=== PATIENT | female | born 1965 | race Two or more races ===

== ENCOUNTER 2016-10-24 14:13 | Emergency (ER) | payer OTHER ==
[2016-10-24 14:33] VITALS: BP 141/86; PULSE 89; TEMP 97.9; BMI 32.9
--- NOTE | 2016-10-24 15:44 | PDOC ---
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 States since that time has had a moist productive cough of yellow phlegm, fevers and chills, head congestion and headache pain. The counter medications with minimal result. Patient smokes less than a pack of cigarettes daily Timing/Duration: reports: changing over time, getting worse Severity: reports: mild, moderate Associated Symptoms: reports: denies symptoms, chest pain/soreness, fever/chills , headache, muscle aches, nasal congestion, nasal drainage Beta Wanda Taken at Home(Core Measure): No Past History - Travel Traveled outside of the country in the last 30 days: No Close contact w/someone who was outside of country & ill: No - Past Medical History Allergies/Adverse Reactions: Allergies Allergy/AdvReac Type Severity Reaction Status Date / Time banana [Banana] Allergy Intermediate Hives Verified 10/24/16 14:29 No Known Drug Allergies Allergy Verified 05/24/16 16:10 raspberry AdvReac Severe Hives Verified 10/24/16 14:29 mushroom AdvReac Intermediate Hives Uncoded 10/24/16 14:29 Home Medications: Ambulatory Orders Aspirin [ASA -] 81 mg PO DAILY 10/25/15 Enalapril Maleate [Vasotec -] 10 mg PO DAILY 10/25/15 Cyclobenzaprine HCl [Flexeril -] 10 mg PO TID PRN #15 tablet 05/24/16 Prednisone [Deltasone -] 20 mg PO BID #8 tablet 05/24/16 Azithromycin [Zithromax -] 250 mg PO UTDICT #6 tab 10/24/16 Asthma: Yes GI Disorders: Yes (GERD) HTN: Yes Psychiatric Problems: Yes (ANXIETY) Suicide Attempt (Hx): No - Surgical History Abdominal Surgery: Yes - Psycho/Social/Smoking Cessation Hx Anxiety: No Suicidal Ideation: No Smoking Status: Yes Smoking History: Current every day smoker Have you smoked in the past 12 months: Yes Number of Cigarettes Smoked Daily: 10 Information on smoking cessation initiated: Yes 'Breaking Loose' booklet given: 02/17/15 Hx Alcohol Use: No Drug/Substance Use Hx: No Substance Use Type: None Respiratory Specific PMHX - Complaint Specific PMHX Bronchitis: Yes Review of Systems - Review of Systems Able to Perform ROS?: Yes Is the patient limited Croatian proficient: Yes Constitutional: Yes: Symptoms Reported, See HPI, Chills, Fever, Malaise, Weakness HEENTM: Yes: Symptoms Reported, See HPI, Nose Congestion, Throat Pain Respiratory: Yes: Symptoms reported, See HPI, Cough. No: Wheezing Cardiac (ROS): No: Symptoms Reported : No: Symptoms Reported Musculoskeletal: Yes: Symptoms Reported, See HPI, Muscle Pain, Joint Stiffness Neurological: Yes: Symptoms reported ( ) All Other Systems: Reviewed and Negative *Physical Exam - Vital Signs Last Vital Signs Temp Pulse Resp BP Pulse Ox 97.9 F 89 20 141/86 98 10/24/16 14:29 10/24/16 14:29 10/24/16 14:29 10/24/16 14:10/24/16 14:29 - Physical Exam General Appearance: Yes: Nourished, Appropriately Dressed. No: Apparent Distress HEENT: positive: ANASTASIA, Normal ENT Inspection, TMs Normal ( congested but landmarks easily visualized), Pharynx Normal (some posterior sinus drainage noted) Neck: positive: Supple. 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 *DC/Admit/Observation/Transfer Diagnosis at time of Disposition: Bronchitis - Discharge Dispostion Disposition: HOME Condition at time of disposition: Stable Admit: No - Patient Instructions Printed Discharge Instructions: DI for Viral Upper Respiratory Infection -- Adult Additional Instructions: Rest, drink lots of fluids: Teas, water, soups, Pedialyte Saltwater gargles Steamy showers/seem to face break up mucus Avoid contact with others until fevers and cough resolved Lots of handwashing and good hygiene Continue [id number] medications for symptomatic relief Tylenol or Motrin for fever and pain Start Zithromax if fevers worsened to 101.5 or above, cough produces thick yellow or green phlegm, symptoms worsen Followup with private physician in one to 2 days as needed Return to emergency department for worsened symptoms, fevers, dehydration
== END 2016-10-24 15:51 | disposition home or self-care (01) ==
LOC: JERFT 14:13
DX: J40 Bronchitis, not specified as acute or chronic (principal); I10 Essential (primary) hypertension; K21.9 Gastro-esophageal reflux disease without esophagitis; J45.909 Unspecified asthma, uncomplicated
CPT/HCPCS: 99281-25

== ENCOUNTER 2016-10-26 14:02 | Emergency (ER) | payer OTHER ==
[2016-10-26 14:07] VITALS: BP 155/89; PULSE 91; TEMP 98.1; BMI 32.9
[2016-10-26] MEDS ORDERED: KETOROLAC TROMETHAMINE 60 MG/2 ML VIAL IM ONE (14:49)
[2016-10-26] MEDS ORDERED: KETOROLAC TROMETHAMINE 60 MG/2 ML VIAL ONE (14:51)
--- NOTE | 2016-10-26 15:07 | PDOC ---
History of Present Illness - General Chief Complaint: Injury Stated Complaint: BACK PAIN Time Seen by Provider: 10/26/16 14:18 History Source: Patient - History of Present Illness Occurred: reports: yesterday Severity: reports: moderate Pain Location: reports: back Method of Injury: Yes: fall Past History - Past Medical History Allergies/Adverse Reactions: Allergies Allergy/AdvReac Type Severity Reaction Status Date / Time banana [Banana] Allergy Intermediate Hives Verified 10/26/16 14:04 No Known Drug Allergies Allergy Verified 10/26/16 14:04 raspberry AdvReac Severe Hives Verified 10/26/16 14:04 mushroom AdvReac Intermediate Hives Uncoded 10/26/16 14:04 Home Medications: Ambulatory Orders NK [No Known Home Medication] 10/26/16 Asthma: Yes GI Disorders: Yes (GERD) HTN: Yes Psychiatric Problems: Yes (ANXIETY) Suicide Attempt (Hx): No - Surgical History Abdominal Surgery: Yes - Psycho/Social/Smoking Cessation Hx Anxiety: Yes Suicidal Ideation: No Smoking Status: Yes Smoking History: Current every day smoker Have you smoked in the past 12 months: Yes Number of Cigarettes Smoked Daily: 20 Information on smoking cessation initiated: No 'Breaking Loose' booklet given: 02/17/15 Hx Alcohol Use: No Drug/Substance Use Hx: No Substance Use Type: None Review of Systems - Review of Systems Respiratory: Yes: Shortness of Breath Cardiac (ROS): No: Chest Pain Musculoskeletal: Yes: Back Pain *Physical Exam - Vital Signs Last Vital Signs Temp Pulse Resp BP Pulse Ox 98.1 F 91 H 18 155/89 98 10/26/16 14:03 10/26/16 14:03 10/26/16 14:03 10/26/16 14:03 10/26/16 14:03 - Physical Exam General Appearance: Yes: Appropriately Dressed, Mild Distress HEENT: positive: Normal Voice Neck: positive: Supple. negative: Tender Musculoskeletal: positive: Normal Inspection, Other (ttp to upper back diffusely ) Extremity: positive: Normal Inspection Integumentary: positive: Dry, Warm Neurologic: positive: Fully Oriented, Alert, Normal Mood/Affect ED Treatment Course - RADIOLOGY Radiology Studies Ordered: Category Date Time Status RIBS BILATERAL [RAD] Stat Radiology 10/26/16 14:50 Ordered - Medications Given in the ED: ED Medications Discontinued Medications Generic Name Dose Route Start Last Admin Trade Name Freq PRN Reason Stop Dose Admin Ketorolac Tromethamine 60 mg 10/26/16 14:49 10/26/16 14:56 Toradol Injection - IM 10/26/16 14:50 60 mg ONCE ONE Administration Medical Decision Making - Medical Decision Making 10/26/16 15:04 51 yo F, h/o chronicn LBP, here w/ upper back pain after she fell onto a piece of wood last night. States pain worse w/ deep inspiration and w/ touch. Took tylenol w/ no relief. Denies any other injuries. See exam Back injury M/l sprain XR r/o rib fx -pain control in ED 10/26/16 15:07 10/26/16 15:20 XR neg for acute pathology. Pt discharge w/ otc pain control *DC/Admit/Observation/Transfer Diagnosis at time of Disposition: Back contusion Qualifiers: Encounter type: initial encounter Laterality: unspecified laterality Qualified Code(s): S20.229A - Contusion of unspecified back wall of thorax, initial encounter - Discharge Dispostion Disposition: HOME Condition at time of disposition: Improved - Referrals Referrals: Jose Alaniz [Primary Care Provider] - - Patient Instructions Printed Discharge Instructions: Thoracic Back Pain Additional Instructions: Take motrin as needed for pain
== END 2016-10-26 15:35 | disposition home or self-care (01) ==
LOC: JERFT 14:02
DX: S20.229A Contusion of unspecified back wall of thorax, initial encounter (principal); W01.198A Fall on same level from slipping, tripping and stumbling with subsequent striking against other object, initial encounter; Y92.89 Other specified places as the place of occurrence of the external cause; Y99.8 Other external cause status; I10 Essential (primary) hypertension; F41.9 Anxiety disorder, unspecified
CPT/HCPCS: 71111-TC; 99281-25

== ENCOUNTER 2016-12-19 11:22 | Emergency (ER) | payer OTHER ==
[2016-12-19 11:27] VITALS: BP 149/84; PULSE 90; TEMP 97.9; BMI 32.5
[2016-12-19] MEDS ORDERED: traMADol HCL 50 MG TABLET PO ONE (12:46)
[2016-12-19] MEDS ORDERED: traMADol HCL 50 MG TABLET ONE (12:53)
--- NOTE | 2016-12-19 12:53 | PDOC ---
History of Present Illness - General Chief Complaint: Pain Stated Complaint: LT SHOULDER PAIN Time Seen by Provider: 12/19/16 11:59 History Source: Patient - History of Present Illness Occurred: reports: last week Upper Extremity Pain Location: left: shoulder Past History - Past Medical History Allergies/Adverse Reactions: Allergies Allergy/AdvReac Type Severity Reaction Status Date / Time banana [Banana] Allergy Intermediate Hives Verified 12/19/16 11:27 No Known Drug Allergies Allergy Verified 12/19/16 11:27 raspberry AdvReac Severe Hives Verified 12/19/16 11:27 mushroom AdvReac Intermediate Hives Uncoded 12/19/16 11:27 Home Medications: Ambulatory Orders Tramadol HCl 50 mg PO Q6H #20 tablet MDD 200 mg 12/19/16 Asthma: Yes GI Disorders: Yes (GERD) HTN: Yes Psychiatric Problems: Yes (ANXIETY) Suicide Attempt (Hx): No - Surgical History Abdominal Surgery: Yes - Psycho/Social/Smoking Cessation Hx Anxiety: Yes Suicidal Ideation: No Smoking Status: Yes Smoking History: Current every day smoker Have you smoked in the past 12 months: Yes Number of Cigarettes Smoked Daily: 20 Information on smoking cessation initiated: Yes 'Breaking Loose' booklet given: 12/19/16 Hx Alcohol Use: No Drug/Substance Use Hx: No Substance Use Type: None Review of Systems - Review of Systems Respiratory: No: Shortness of Breath Cardiac (ROS): No: Chest Pain Musculoskeletal: Yes: Joint Pain. No: Joint Swelling *Physical Exam - Vital Signs Last Vital Signs Temp Pulse Resp BP Pulse Ox 97.9 F 90 18 149/84 98 12/19/16 11:24 12/19/16 11:24 12/19/16 11:24 12/19/16 11:24 12/19/16 11:24 - Physical Exam General Appearance: Yes: Appropriately Dressed. No: Apparent Distress HEENT: positive: Normal Voice Neck: positive: Supple Respiratory/Chest: positive: Lungs Clear, Normal Breath Sounds. negative: Respiratory Distress Cardiovascular: positive: Regular Rate, S1, S2 Extremity: positive: Normal Inspection, Normal Range of Motion, Tender (to shoulderblade). negative: Swelling Integumentary: positive: Dry, Warm Neurologic: positive: Fully Oriented, Alert, Normal Mood/Affect Medical Decision Making - Medical Decision Making 12/19/16 12:53 51-year-old female, h/o arthritis and chronic LBP, here with left shoulder pain 1 week. Reports pain to L shoulder blade and anterior aspect of left shoulder that is mostly constant and worse with certain movements. Taking over-the- counter medication with no relief. Denies any trauma or other inciting agents. No chest pain or shortness of breath. Patient well-appearing and stable with tenderness to palpation over her left shoulder blade, otherwise exam unremarkable. Most likely muscular. DC with pain control and Ortho follow-up if pain persist *DC/Admit/Observation/Transfer Diagnosis at time of Disposition: Shoulder pain, left Qualifiers: Chronicity: acute Qualified Code(s): M25.512 - Pain in left shoulder - Discharge Dispostion Disposition: HOME Condition at time of disposition: Good - Prescriptions Prescriptions: Tramadol HCl 50 mg PO Q6H #20 tablet MDD 200 mg - Referrals Referrals: Guanakito Verde MD [Staff Physician] - - Patient Instructions Printed Discharge Instructions: DI for Shoulder Pain
== END 2016-12-19 13:00 | disposition home or self-care (01) ==
LOC: JERFT 11:22
DX: M25.512 Pain in left shoulder (principal); M54.5 Low back pain; I10 Essential (primary) hypertension; J45.909 Unspecified asthma, uncomplicated; F41.9 Anxiety disorder, unspecified; K21.9 Gastro-esophageal reflux disease without esophagitis; F17.210 Nicotine dependence, cigarettes, uncomplicated
CPT/HCPCS: 99281-25

== ENCOUNTER 2017-04-20 08:12 | Emergency (ER) | payer OTHER ==
[2017-04-20 08:17] VITALS: BP 139/60; PULSE 96; TEMP 97.8; BMI 33.4
--- NOTE | 2017-04-20 08:39 | PDOC ---
History of Present Illness - General Chief Complaint: Cold Symptoms Stated Complaint: SOB Time Seen by Provider: 04/20/17 08:32 History Source: Patient Exam Limitations: No Limitations - History of Present Illness Initial Comments: 04/20/17 08:39 51 yr female with c/o cough right ear pain, nasal congestion wheezing all night for 3 days and fever 102 yesterday. no chest pain , no history of intubations, well controlled asthma at home. history of asthma, HTN, high cholesterol, back pain. Severity: reports: mild Possible Cause: Yes: allergen exposure, occasional episodes Associated Symptoms: reports: cough, facial pain, fever/chills, nasal congestion , sore throat, wheezing. denies: chest pain/soreness, shortness of breath Aspirin Received prior to arrival: Yes: 81 mg x 1 Past History - Past Medical History Allergies/Adverse Reactions: Allergies Allergy/AdvReac Type Severity Reaction Status Date / Time banana [Banana] Allergy Intermediate Hives Verified 04/20/17 08:17 No Known Drug Allergies Allergy Verified 04/20/17 08:17 raspberry AdvReac Severe Hives Verified 04/20/17 08:17 mushroom AdvReac Intermediate Hives Uncoded 04/20/17 08:17 Home Medications: Ambulatory Orders Tramadol HCl 50 mg PO Q6H #20 tablet MDD 200 mg 12/19/16 Azithromycin [Zithromax 250mg Tablets -] 250 mg PO UTDICT #6 tab 04/20/17 Fluticasone Prop 0.05% Nasal [Flonase -] 1 - 2 spray NS DAILY #1 spray.pump Prednisone [Deltasone -] 40 mg PO DAILY #10 tablet 04/20/17 Asthma: Yes GI Disorders: Yes (GERD) HTN: Yes Psychiatric Problems: Yes (ANXIETY) Suicide Attempt (Hx): No Other medical history: BACK PROBLEMS. - Surgical History Abdominal Surgery: Yes - Psycho/Social/Smoking Cessation Hx Anxiety: Yes Suicidal Ideation: No Smoking Status: Yes Smoking History: Current every day smoker Have you smoked in the past 12 months: Yes Number of Cigarettes Smoked Daily: 20 Information on smoking cessation initiated: No 'Breaking Loose' booklet given: 12/19/16 Hx Alcohol Use: No Drug/Substance Use Hx: No Substance Use Type: None Respiratory Specific PMHX - Complaint Specific PMHX Angina: No Bronchitis: Yes Pneumonia: No Pulmonary Embolus: No TB (Tuberculosis): No Review of Systems - Review of Systems Able to Perform ROS?: Yes Is the patient limited Uzbek proficient: No Constitutional: Yes: Symptoms Reported HEENTM: Yes: Symptoms Reported Respiratory: Yes: Symptoms reported *Physical Exam - Vital Signs Last Vital Signs Temp Pulse Resp BP Pulse Ox 97.8 F 96 H 18 139/60 98 04/20/17 08:13 04/20/17 08:13 04/20/17 08:13 04/20/17 08:13 04/20/17 08:13 - Physical Exam General Appearance: Yes: Nourished, Appropriately Dressed HEENT: positive: EOMI, ANASTASIA, Normal ENT Inspection, Pharyngeal Erythema, TM Bulging (right), TM Erythema. negative: Tonsillar Exudate, Tonsillar Erythema Neck: negative: Tender, Lymphadenopathy (R), Lymphadenopathy (L) Respiratory/Chest: positive: Lungs Clear, Normal Breath Sounds. negative: Wheezing Cardiovascular: positive: Regular Rhythm, Regular Rate Gastrointestinal/Abdominal: positive: Normal Bowel Sounds, Soft Musculoskeletal: positive: Normal Inspection Extremity: positive: Normal Capillary Refill, Normal Inspection, Normal Range of Motion Integumentary: positive: Normal Color, Dry, Warm Neurologic: positive: Fully Oriented, Alert, Normal Mood/Affect, Normal Response , Motor Strength 5/5 Medical Decision Making - Medical Decision Making 04/20/17 08:41 cc: cough ear pain, fever, wheezing. 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 no acute distress vitals stable impression: URI will give prednisone, flonase, zpack strict follow up with PMD pt agrees with plan all questions asked and answered *DC/Admit/Observation/Transfer Diagnosis at time of Disposition: Upper respiratory infection Qualifiers: URI type: acute nasopharyngitis (common cold) Qualified Code(s): J00 - Acute nasopharyngitis [common cold] - Discharge Dispostion Disposition: HOME Condition at time of disposition: Good - Prescriptions Prescriptions: Prednisone [Deltasone -] 40 mg PO DAILY #10 tablet Fluticasone Prop 0.05% Nasal [Flonase -] 1 - 2 spray NS DAILY #1 spray.pump Azithromycin [Zithromax 250mg Tablets -] 250 mg PO UTDICT #6 tab - Referrals Referrals: Corbin,Jose [Primary Care Provider] - - Patient Instructions Additional Instructions: drink plenaty of water to stay well hydrated take the medication as prescribed follow with your doctor this week
== END 2017-04-20 08:38 | disposition home or self-care (01) ==
LOC: SUPCPDRO 08:12 → JERFT 08:12
DX: J00 Acute nasopharyngitis [common cold] (principal); I10 Essential (primary) hypertension; E78.00 Pure hypercholesterolemia, unspecified
CPT/HCPCS: 99281-25

== ENCOUNTER 2017-11-02 07:41 | Emergency (ER) | payer OTHER ==
[2017-11-02 07:49] VITALS: BP 150/96; PULSE 104; TEMP 98.5; BMI 34.2
--- NOTE | 2017-11-02 08:19 | PDOC ---
History of Present Illness - General Chief Complaint: Injury Stated Complaint: FALL Time Seen by Provider: 11/02/17 08:08 History Source: Patient Exam Limitations: No Limitations - History of Present Illness Initial Comments: 11/02/17 08:21 HPI: This 52-year-old female presented to the emergency room with complaint of left knee pain. She apparently was dancing last night and slipped falling on her left knee. She had pain overnight and took some Advil however this morning it is in the 10 out of 10 pain and she is here for evaluation. She did feel like she heard a crack when she fell. She has some pain that radiates down her leg but does not have any numbness or tingling. No obvious injury noted Chief Compliant: Left knee pain PMH: Hypertension asthma FH: Pt has not recently traveled outside the country in the last 30 days. Pt has not been in contact with people who have traveled out of the country, in contact with people who have been ill with fever, n, v, d. 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: LMP: Currently has menses G P : Past History - Past Medical History Allergies/Adverse Reactions: Allergies Allergy/AdvReac Type Severity Reaction Status Date / Time banana [Banana] Allergy Intermediate Hives Verified 11/02/17 07:49 No Known Drug Allergies Allergy Verified 11/02/17 07:49 raspberry AdvReac Severe Hives Verified 11/02/17 07:49 mushroom AdvReac Intermediate Hives Uncoded 11/02/17 07:49 Home Medications: Ambulatory Orders Ibuprofen [Motrin -] 600 mg PO TID #21 tablet 11/02/17 Tramadol HCl 50 mg PO BID PRN #10 tablet MDD 2 11/02/17 Asthma: Yes COPD: No GI Disorders: Yes (GERD) HTN: Yes Psychiatric Problems: Yes (ANXIETY) - Surgical History Abdominal Surgery: Yes - Suicide/Smoking/Psychosocial Hx Smoking Status: Yes Smoking History: Never smoked Have you smoked in the past 12 months: Yes Number of Cigarettes Smoked Daily: 20 Information on smoking cessation initiated: No 'Breaking Loose' booklet given: 12/19/16 Hx Alcohol Use: No Drug/Substance Use Hx: No Substance Use Type: None Review of Systems - Review of Systems Able to Perform ROS?: Yes Comments:: 11/02/17 08:22 General statement: Hematology: neg history of bleeding/blood thinners Skin: Neg for lesions, rash, bruising. HEENT: Neg symptoms Respiratory: Neg SOB or difficulty in breathing Cardiac: Neg chest pain GI: Neg pain, n/v : Neg problems on voiding MS: left knee pain Neuro: Neg for LOC, weakness, Endocrine: Neg for excess thirst/hunger, cold/heat intolerance, excess sweating Allergies: Neg for allergies drugs *Physical Exam - Vital Signs Last Vital Signs Temp Pulse Resp BP Pulse Ox 98.5 F 104 H 20 150/96 99 11/02/17 07:43 11/02/17 07:43 11/02/17 07:43 11/02/17 07:43 11/02/17 07:43 - Physical Exam Comments: 11/02/17 08:23 General Appearance: This well appearing 52 yr old female V/S: hemodynamically stable, afebrile Skin: WNL of pt's skin color, no signs of pallor, mottling, cyanosis Head:symmetrical Eyes: EOM's intact, PERRLA Ears: denies pain Nose: patent Throat: lips, teeth, gums, tongue, buccal mucos pink and moist Lungs: Chest symmetry equal. Cap refill <3 seconds. Lung sounds clear Cardiac: PMI at R 4MCL space, pos S1 and S2, regular rate. Abdomen: Soft, round, nontender : Not observed Muscularskeletal: Pain walking, in a w/c with left knee pain, pain medial. Neuro: AAOx3, cognitively intact, speech clear and appropriate. Medical Decision Making - Medical Decision Making 11/02/17 08:24 Patient initially seen and examined. Patient found to have left knee pain. In for an x-ray. 11/02/17 08:54 X-ray negative for dislocation or fractures. Patient is placed in a knee immobilizer and given Percocet here in the ER. Patient will be given some pain medications and instructions to follow-up with an orthopedic. *DC/Admit/Observation/Transfer Diagnosis at time of Disposition: Knee pain, acute Qualifiers: Laterality: left Qualified Code(s): M25.562 - Pain in left knee - Discharge Dispostion Disposition: HOME Condition at time of disposition: Good Admit: No - Referrals Referrals: Jose Alaniz [Primary Care Provider] - Isaias Gould MD [Staff Physician] - - Patient Instructions Printed Discharge Instructions: DI for Acute Pain -- Adult Additional Instructions: Discharge instructions 1. Please follow up with your primary physician within the next few days and explain that you have been seen here in the Emergency Room. You also need to follow up with an orthopedic surgeon and I have given you a referral name of Dr. Gould 2. If you experience any worsening of symptoms such as numbness, tingling, and increase pain, please return to the ER 3. Rest, elevate, immobilize and ice to the left knee. Take pain meds as need. No ambulation or driving. - Post Discharge Activity
== END 2017-11-02 09:36 | disposition home or self-care (01) ==
LOC: JERFT 07:41
PROC: 2W3RXYZ Immobilization of Left Lower Leg using Other Device (ICD-10-PCS; principal; 2017-11-02)
DX: S89.82XA Other specified injuries of left lower leg, initial encounter (principal); W18.39XA Other fall on same level, initial encounter; Y93.49 Activity, other involving dancing and other rhythmic movements; Y92.89 Other specified places as the place of occurrence of the external cause; Y99.8 Other external cause status; I10 Essential (primary) hypertension; J45.909 Unspecified asthma, uncomplicated; K21.9 Gastro-esophageal reflux disease without esophagitis; F41.9 Anxiety disorder, unspecified
CPT/HCPCS: 29530; 73562-TC-LT; 99281-25

== ENCOUNTER 2017-12-31 05:42 | Day surgery (SDC) | payer OTHER ==
[2017-12-18 12:41] VITALS: BMI 29.3
[2017-12-31] MEDS ORDERED: LIDOCAINE HCL/PF 2% SDV 5ML VIAL ONE (08:07)
[2017-12-31] MEDS ORDERED: PROPOFOL 20 ML ONE (08:08)
[2017-12-31] MEDS ORDERED: MIDAZOLAM HCL 2 MG/2 ML SINGLE DOSE VIAL ONE (08:08)
--- NOTE | 2017-12-31 08:54 | HP ---
[facility]ellite [facility] - Chief Complaint Chief Complaint: left knee pain - Past Medical History Allergies/Adverse Reactions: Allergies Allergy/AdvReac Type Severity Reaction Status Date / Time banana [Banana] Allergy Intermediate Hives Verified 12/31/17 08:20 No Known Drug Allergies Allergy Verified 12/31/17 08:20 raspberry AdvReac Severe Hives Verified 12/31/17 08:20 mushroom AdvReac Intermediate Hives Uncoded 12/31/17 08:20 ...LMP: 12/08/17 - Current Medications Current Medications: Home Medications Medication Instructions Recorded Ibuprofen [Motrin -] 600 mg PO TID #21 tablet 11/02/17 Enalapril Maleate [Vasotec -] 10 mg PO DAILY 12/18/17 Tramadol HCl 50 mg PO TID PRN #30 tablet MDD 3 12/31/17 Satellite Physical Exam - Physical Examination Vital Signs: Vital Signs Period Temp Pulse Resp BP Sys/Gallo Pulse Ox Last 24 Hr 98.2 F 94 18 149/95 98 General Appearance: Well Nourished, Well Developed, Alert & Oriented x3 ENT: Clear Lung: Normal air movement Heart: Regular rate & rhythm Neurological: Intact, Alert, Oriented Satellite Impression/Plan - Impression/Plan Impression: left knee internal derangement Operative Procedure: left knee arthroscopy Date to be Performed: 12/31/17
[2017-12-31] MEDS ORDERED: KETOROLAC TROMETHAMINE 30 MG/1 ML VIAL ONE (09:05)
[2017-12-31] MEDS ORDERED: DEXAMETHASONE SOD PHOSPHATE 4 MG/1 ML VIAL ONE (09:05)
[2017-12-31] MEDS ORDERED: LIDOCAINE 1%/EPI 1:100000 (50 ML MULTI DOSE VIAL) INF ONE (09:16)
[2017-12-31] MEDS ORDERED: BUPIVACAINE HCL/PF 0.5% (5MG/ML) 10 ML VIAL IJ ONE (09:16)
[2017-12-31] MEDS ORDERED: ONDANSETRON 4 MG/2 ML VIAL IVPUSH PRN (09:34)
[2017-12-31] MEDS ORDERED: oxyCODONE HCL 5 MG TABLET PO PRN (09:34)
[2017-12-31] MEDS ORDERED: PROMETHAZINE HCL 25 MG/1 ML VIAL IVPUSH PRN (09:34)
[2017-12-31] MEDS ORDERED: LACTATED RINGERS SOLUTION 1,000 ML IV SCH (09:45)
--- NOTE | 2017-12-31 09:49 | OP ---
Operative Note - Note: Operative Date: 12/31/17 Pre-Operative Diagnosis: internal derangement left knee Operation: arthroscopy left knee with partial MM, chondroplasty trochlea, partial ACL debridement Post-Operative Diagnosis: Same as Pre-op Surgeon: Isaias Gould Anesthesia: General Estimated Blood Loss (mls): 0 Drains, Volume Out (mls): 0 Blood Volume Replaced (mls): 0 Operative Report Dictated: Yes
--- NOTE | 2017-12-31 10:33 | OP ---
DATE OF OPERATION: 12/31/2017 PREOPERATIVE DIAGNOSIS: Internal derangement, left knee. POSTOPERATIVE DIAGNOSIS: Internal derangement, left knee. PROCEDURE: Arthroscopy, left knee. Partial medial meniscectomy; chondroplasty, trochlea; and partial debridement, anterior cruciate ligament. SURGICAL ATTENDING: Isaias Gould MD ANESTHESIA: LMA. CLOSURE: Nylon 4-0 COMPLICATIONS: None. CONDITION: To recovery room in stable condition. DESCRIPTION OF THE OPERATIVE PROCEDURE: Patient taken to the operating room on December 31, 2017. General anesthesia with LMA was administered by the anesthesiologist. Left lower extremity was prepped and draped in the usual sterile fashion. The medial and lateral infrapatellar portal sites were infiltrated with 1% Xylocaine with epinephrine. Each portal was then made with a 15-blade followed by blunt trocar. The scope trocar was placed in the inferolateral portal and up to the suprapatellar pouch. The knee was then inflated with cocktail of 10 mL of 1% Xylocaine, 10 mL of 0.5% Marcaine, and 20 mL of fluid. This was allowed to sit in the knee for a few minutes to anesthetize the intraarticular portion of the knee. We then proceeded with the procedure. The undersurface of the patella was found to be intact. The trochlea had some grade 2-3 changes debrided using the shaver. The medial and lateral gutters were visualized to be clear. With valgus stress on the knee, the medial compartment was entered. Medial meniscus was visualized, probed, found to have complex tear of its posterior horn. This was debrided back to smooth, stable meniscal tissues meniscal biter and arthroscopic shaver. The medial femoral condyle was probed and found to be intact, as was the medial tibial plateau. At 90 degrees the ACL was found to have a flap tear anteriorly. Those fibers were debrided. The rest of the ACL was avulsed off the posterior femoral attachment in the posterior aspect of the notch but was scarring lower down and to the PCL so that we left those fibers in situ. With valgus stress on the knee, the lateral compartment was entered. The lateral meniscus was visualized, probed, found to be intact. Lateral femoral condyle was probed and found to be intact, as was the lateral tibial plateau. The knee was irrigated with copious amounts of irrigation. The portals were closed using 4-0 nylon. Prior to closure, 20 mL of 0.5% Marcaine was infused into the knee for postoperative analgesia. Sterile pressure dressing was placed over the knee. Patient awakened from anesthesia and transferred to recovery room in stable condition. No complications. Estimated blood loss negligible. Kelvin [id number]
[2017-12-31 10:56] VITALS: PULSE 80; TEMP 97.9
[2017-12-31 18:59] VITALS: BP 110/70
--- NOTE | 2018-01-01 14:07 | PATH ---
Surgical Pathology Report Patient Name: ANNIE ARVIZU [facility]. Rec. #: [id number] /Age/Gender: 1965 (Age: 52) / F Account: [id number] Location: [facility] Taken: 12/31/2017 Received: 12/31/2017 Reported: 01/01/2018 Physicians: Isaias Gould M.D. Specimen(s) Received LEFT KNEE SHAVINGS Clinical History Left knee internal arrangement Final Diagnosis KNEE, LEFT, ARTHROSCOPIC SHAVING: FIBROCARTILAGE WITH MYXOID DEGENERATIVE CHANGES, ALONG WITH PORTIONS OF SYNOVIUM AND HYALINE CARTILAGE. Electronically Signed Slim Chappell M.D. Gross Description Received in formalin, labeled "left knee shavings," is a 2.5 cm. aggregate of [place]-yellow soft tissue fragments. A promotional representative portion is submitted in one cassette. [facility]/12/31/2017 [facility]/12/31/2017
== END 2017-12-31 12:00 | disposition home or self-care (01) ==
LOC: JASU-SURG 05:42
PROVIDERS: ATTEND Orthopaedic Surgery
PROC: 0SBD4ZZ Excision of Left Knee Joint, Percutaneous Endoscopic Approach (ICD-10-PCS; principal; 2017-12-31 09:30)
DX: M23.92 Unspecified internal derangement of left knee (principal)
CPT/HCPCS: 84703; 88304-TC; 94760

== ENCOUNTER 2018-01-05 14:18 | Emergency (ER) | payer OTHER ==
--- NOTE | 2018-01-05 14:22 | PDOC ---
Rapid Medical Evaluation Chief Complaint: Chest Pain Time Seen by Provider: 01/05/18 14:20 Medical Evaluation: Allergies Allergy/AdvReac Type Severity Reaction Status Date / Time banana [Banana] Allergy Intermediate Hives Verified 01/05/18 14:19 No Known Drug Allergies Allergy Verified 01/05/18 14:19 raspberry AdvReac Severe Hives Verified 01/05/18 14:19 mushroom AdvReac Intermediate Hives Uncoded 01/05/18 14:19 01/05/18 14:21 The patient presents with a chief complaint of: upper respiratory symptoms I have performed a brief in-person evaluation of this patient. Pertinent physical exam findings: vss I have ordered the following: flutest The patient will proceed to the ED for further evaluation.
[2018-01-05 14:24] VITALS: BP 120/74; TEMP 97.9; BMI 34.4
[2018-01-05] MEDS ORDERED: ACETAMINOPHEN 325 MG TABLET (FP) PO ONE (14:26)
--- NOTE | 2018-01-05 15:04 | PDOC ---
History of Present Illness - General Chief Complaint: Cold Symptoms Stated Complaint: cold symptoms Time Seen by Provider: 01/05/18 14:20 History Source: Patient Exam Limitations: No Limitations - History of Present Illness Initial Comments: 01/05/18 15:04 This is a 52-year-old woman with past medical history of(streptococcal infections requiring tonsillectomy and's ACL meniscus repair on 12/31 presents emergency Department with nasal congestion, fevers, sore throat, moist cough and sinus pressure for 2 days. Patient denies any sick contacts. She denies any hemoptysis, shortness of breath, chest pain, nausea, vomiting, abdominal pain. Past History - Past Medical History Allergies/Adverse Reactions: Allergies Allergy/AdvReac Type Severity Reaction Status Date / Time banana [Banana] Allergy Intermediate Hives Verified 01/05/18 14:19 No Known Drug Allergies Allergy Verified 01/05/18 14:19 raspberry AdvReac Severe Hives Verified 01/05/18 14:19 mushroom AdvReac Intermediate Hives Uncoded 01/05/18 14:19 Home Medications: Ambulatory Orders Enalapril Maleate [Vasotec -] 10 mg PO DAILY 12/18/17 Aspirin [ASA -] 81 mg PO DAILY 01/05/18 Tramadol HCl 50 mg PO ASDIR 01/05/18 Asthma: Yes COPD: No GI Disorders: Yes (GERD) Disorders: No HTN: Yes Psychiatric Problems: Yes (ANXIETY) Thyroid Disease: No - Surgical History Abdominal Surgery: Yes - Immunization History Immunization Up to Date: Yes - Suicide/Smoking/Psychosocial Hx Smoking Status: Yes Smoking History: Current every day smoker Have you smoked in the past 12 months: Yes Number of Cigarettes Smoked Daily: 15 Information on smoking cessation initiated: Yes 'Breaking Loose' booklet given: 01/05/18 Hx Alcohol Use: Yes (RARE) Drug/Substance Use Hx: No Substance Use Type: None Respiratory Specific PMHX - Complaint Specific PMHX Angina: No Bronchitis: Yes Pneumonia: No Pulmonary Embolus: No TB (Tuberculosis): No Review of Systems - Review of Systems Able to Perform ROS?: Yes Is the patient limited Setswana proficient: No Constitutional: Yes: See HPI HEENTM: No: Symptoms Reported Respiratory: Yes: See HPI Cardiac (ROS): No: Symptoms Reported ABD/GI: No: Symptoms Reported : No: Symptoms Reported Musculoskeletal: No: Symptoms Reported Integumentary: No: Symptoms Reported Neurological: No: Symptoms reported Endocrine: No: Symptoms Reported Hematologic/Lymphatic: No: Symptoms Reported *Physical Exam - Vital Signs Last Vital Signs Temp Pulse Resp BP Pulse Ox 97.9 F 118 H 18 120/74 96 01/05/18 14:19 01/05/18 14:19 01/05/18 14:19 01/05/18 14:19 01/05/18 14:19 - Physical Exam General Appearance: Yes: Appropriately Dressed. No: Apparent Distress HEENT: positive: TMs Normal, Pharyngeal Erythema, Nasal Congestion, Rhinorrhea, Sinus Tenderness Neck: positive: Trachea midline, Supple Respiratory/Chest: positive: Lungs Clear, Normal Breath Sounds. negative: Respiratory Distress, Accessory Muscle Use Cardiovascular: positive: Regular Rhythm, Regular Rate. negative: Murmur Gastrointestinal/Abdominal: positive: Normal Bowel Sounds, Soft. negative: Tender Musculoskeletal: positive: Normal Inspection. negative: CVA Tenderness Extremity: positive: Normal Inspection, Normal Range of Motion Integumentary: positive: Normal Color, Dry, Warm Neurologic: positive: Alert, Normal Response ED Treatment Course - LABORATORY CBC & Chemistry Diagram: 01/05/18 15:38 01/05/18 15:38 - Medications Given in the ED: ED Medications Discontinued Medications Generic Name Dose Route Start Last Admin Trade Name Freq PRN Reason Stop Dose Admin Acetaminophen 650 mg 01/05/18 14:26 01/05/18 14:33 Tylenol - PO 01/05/18 14:27 650 mg ONCE ONE Administration Medical Decision Making - Medical Decision Making 01/05/18 15:08 A/P: 52-year-old woman with 2 days of flulike symptoms Differential erythema noted. Tonsils and uvula not present. TMs within normal limits bilaterally Tenderness to maxillary sinuses with light palpation Speaking in full sentences. Respirations even and unlabored. Lungs clear to auscultation bilaterally Tachycardic on auscultation to 110. Abdomen soft nontender nondistended. Patient's symptoms consistent with upper respiratory infection versus streptococcal infection. Rapid strep testing Influenza testing Tylenol 650 mg from rapid medical evaluation 01/05/18 15:45 Rapid strep and influenza testing are negative. Patient remains tachycardic. I will collect basic labs with d-dimer to rule out PE. 01/05/18 16:54 D-dimer positive. CTA of the chest ordered Patient be transferred to the main ER for continued evaluation. Sign out give into JONATHAN Collins *DC/Admit/Observation/Transfer Diagnosis at time of Disposition: Encounter for smoking cessation counseling, Cough - Referrals Referrals: Jose Alaniz [Primary Care Provider] - - Patient Instructions - Post Discharge Activity
[2018-01-05 16:08] LABS: BASO % 0.4 % (0-2.0); EOS % 4.4 % (0-4.5); HEMATOCRIT 41.6 % (32.4-45.2); HEMOGLOBIN 13.8 GM/dL (10.7-15.3); LYMPH % 25.6 % (8-40); MCH 26.8 pg (25.7-33.7); MCHC 33.3 g/dl (32.0-36.0); MEAN CELL VOLUME 80.5 fl (80-96); MONO % 5.8 % (3.8-10.2); NEUT % 63.8 % (42.8-82.8); PLATELET COUNT 473 K/MM3 (134-434); RBC 5.17 M/mm3 (3.60-5.2); WHITE BLOOD COUNT 9.7 K/mm3 (4.0-10.0)
[2018-01-05] MEDS ORDERED: SODIUM CHLORIDE 1,000 ML IV STA (16:50)
--- NOTE | 2018-01-05 16:52 | PDOC ---
*Physical Exam - Vital Signs Last Vital Signs Temp Pulse Resp BP Pulse Ox 97.9 F 118 H 18 120/74 96 01/05/18 14:19 01/05/18 14:19 01/05/18 14:19 01/05/18 14:19 01/05/18 14:19 - Physical Exam General Appearance: Yes: Appropriately Dressed. No: Apparent Distress HEENT: positive: Normal Voice Neck: positive: Supple Respiratory/Chest: positive: Lungs Clear, Normal Breath Sounds. negative: Respiratory Distress Cardiovascular: positive: S1, S2, Tachycardia Extremity: negative: Tender, Pedal Edema, Swelling Integumentary: positive: Dry, Warm Neurologic: positive: Fully Oriented, Alert, Normal Mood/Affect ED Treatment Course - LABORATORY CBC & Chemistry Diagram: 01/05/18 15:38 01/05/18 15:38 - ADDITIONAL ORDERS Additional order review: Laboratory Results 01/05/18 15:38 D-Dimer 1115 H 01/05/18 15:00 Group A Strep Rapid Antigen - Final Throat 01/05/18 14:29 Influenza Types A,B Antigen (MAGDI) - Final Nasopharyngeal Swab - Final 01/05/18 15:38 RBC 5.17 MCV 80.5 MCHC 33.3 RDW 15.0 MPV 8.0 Neutrophils % 63.8 D Lymphocytes % 25.6 D Monocytes % 5.8 Eosinophils % 4.4 Basophils % 0.4 - RADIOLOGY Radiology Studies Ordered: Category Date Time Status CHEST PA & LAT [RAD] Stat Radiology 01/05/18 16:50 Ordered - Medications Given in the ED: ED Medications Discontinued Medications Generic Name Dose Route Start Last Admin Trade Name Freq PRN Reason Stop Dose Admin Acetaminophen 650 mg 01/05/18 14:26 01/05/18 14:33 Tylenol - PO 01/05/18 14:27 650 mg ONCE ONE Administration Medical Decision Making - Medical Decision Making 01/05/18 16:51 Patient bumped over from fast track, and signed out to me by ZORAIDA Wharton Patient is a 52-year-old female with history of recurrent strep, status post ACL repair last week and now here with URI symptoms. Patient found to be persistently tachycardia in fast track with significantly elevated d-dimer. Sent over pending CTA. Fluids in progress. Patient stable otherwise with no evidence of respiratory distress 01/05/18 18:55 Signed out to JONATHAN Cunningham pending CTA *DC/Admit/Observation/Transfer Diagnosis at time of Disposition: Encounter for smoking cessation counseling, Cough - Referrals Referrals: Jose Alaniz [Primary Care Provider] - - Patient Instructions - Post Discharge Activity
[2018-01-05 16:56] LABS: ANION GAP 11 (8-16); BLOOD UREA NITROGEN 11 mg/dL (7-18); CALCIUM 9.4 mg/dL (8.5-10.1); CHLORIDE 101 mmol/L (98-107); CO2 26 mmol/L (21-32); CREATININE 0.7 mg/dL (0.55-1.02); GLUCOSE,RANDOM 87 mg/dL (74-106); POTASSIUM 4.6 mmol/L (3.5-5.1); SODIUM 138 mmol/L (136-145)
[2018-01-05 18:09] LABS: INR 0.96 (0.82-1.09); PROTHROMBIN TIME (PATIENT) 10.8 SEC (9.98-11.88)
--- NOTE | 2018-01-05 20:04 | PDOC ---
ED Treatment Course - LABORATORY CBC & Chemistry Diagram: 01/05/18 15:38 01/05/18 15:38 - ADDITIONAL ORDERS Additional order review: Laboratory Results 01/05/18 01/05/18 01/05/18 17:53 15:38 15:38 PT with INR 10.80 INR 0.96 D-Dimer Sodium 138 Potassium 4.6 Chloride 101 Carbon Dioxide 26 Anion Gap 11 BUN 11 Creatinine 0.7 Random Glucose 87 Calcium 9.4 Urine HCG, Qual Negative 01/05/18 15:38 PT with INR INR D-Dimer 1115 H Sodium Potassium Chloride Carbon Dioxide Anion Gap BUN Creatinine Random Glucose Calcium Urine HCG, Qual 01/05/18 15:00 Group A Strep Rapid Antigen - Final Throat 01/05/18 14:29 Influenza Types A,B Antigen (MAGDI) - Final Nasopharyngeal Swab - Final 01/05/18 15:38 RBC 5.17 MCV 80.5 MCHC 33.3 RDW 15.0 MPV 8.0 Neutrophils % 63.8 D Lymphocytes % 25.6 D Monocytes % 5.8 Eosinophils % 4.4 Basophils % 0.4 - Medications Given in the ED: ED Medications Discontinued Medications Generic Name Dose Route Start Last Admin Trade Name Freq PRN Reason Stop Dose Admin Acetaminophen 650 mg 01/05/18 14:26 01/05/18 14:33 Tylenol - PO 01/05/18 14:27 650 mg ONCE ONE Administration Sodium Chloride 1,000 mls @ 1,000 mls/hr 01/05/18 16:50 01/05/18 17:13 Normal Saline - IV 01/05/18 17:49 1,000 mls/hr ASDIR STA Administration Progress Note - Progress Note Progress Note: I have received report from JONATHAN Hopper regarding this patient. Pt's initial chief complaint: URI symptoms and tachycardia s/p ACL repair last week Pt's work up completed prior to sign out: labs, ekg, rapid strep, influenza, CXR Pt treatment given from prior staff: Iv fluids and tylenol Pt plan to be completed: Awaiting Chest CTA Dispo: pending Medical Decision Making - Medical Decision Making A/P: 52 y/o female, s/p ACL repair last week with URI symptoms and tachycardia. D-dimer found to be >1,000. Awaiting Chest CTA to r/o PE. chest CTA IMPRESSION: No PE. No pneumonia Patient no longer tachycardia. No left calf pain with palpation. No erythema, warmth to left calf. Gave patient her results. Gave her a new ELEAZAR bandage for her knee. Will discharge the patient to home. suggested she f/u with her surgeon. will send rx for tylenol #3 because she states the percocet and tramadol they gave her to go home with was too strong. Pt instructed to return to the ER with any worsening or concerning symptoms. The patient verbalizes understanding of all instructions, has no further questions and is awaiting discharge. *DC/Admit/Observation/Transfer Diagnosis at time of Disposition: Encounter for smoking cessation counseling, Cough, Knee pain, acute - Discharge Dispostion Disposition: HOME Condition at time of disposition: Good - Referrals Referrals: Jose Alaniz [Primary Care Provider] - - Patient Instructions Printed Discharge Instructions: DI for Viral Upper Respiratory Infection -- Adult Additional Instructions: Discharge Instructions: -The Cat Scan of your chest was negative for blood clot and negative for pneumonia. -A prescription for pain medication has been sent to your pharmacy - it may cause drowsiness -Do not take Tylenol #3 while taking oxycodone/percocet -Return to the ER with any worsening or concerning symptoms - Post Discharge Activity
[2018-01-05] MEDS ORDERED: ACETAMINOPHEN WITH CODEINE 300MG/30MG TABLET ONE (20:37)
[2018-01-05 20:38] VITALS: PULSE 91
[2018-01-05] MEDS ORDERED: ACETAMINOPHEN WITH CODEINE 300MG/30MG TABLET PO ONE (20:56)
== END 2018-01-05 20:58 | disposition home or self-care (01) ==
LOC: JER 14:18 → JERFT 14:18 → JER 20:58
PROC: 3E0337Z Introduction of Electrolytic and Water Balance Substance into Peripheral Vein, Percutaneous Approach (ICD-10-PCS; principal; 2018-01-05)
DX: J06.9 Acute upper respiratory infection, unspecified (principal); R74.8 Abnormal levels of other serum enzymes; D68.8 Other specified coagulation defects; Z98.890 Other specified postprocedural states; Z71.6 Tobacco abuse counseling; I10 Essential (primary) hypertension; K21.9 Gastro-esophageal reflux disease without esophagitis; F41.9 Anxiety disorder, unspecified; F17.210 Nicotine dependence, cigarettes, uncomplicated; Z79.82 Long term (current) use of aspirin
CPT/HCPCS: 36415; 71046-TC-FY; 71275-TC; 80048; 84703; 85025; 85379; 85610; 87070; 87430; 87804; 96360; 99282-25; J7030

== ENCOUNTER 2018-03-28 07:11 | Emergency (ER) | payer OTHER ==
[2018-03-28 08:12] VITALS: BP 135/75; PULSE 84; TEMP 98; BMI 32.9
--- NOTE | 2018-03-28 08:17 | PDOC ---
History of Present Illness - General Chief Complaint: Chronic pain Stated Complaint: BACK PAIN Time Seen by Provider: 03/28/18 08:14 History Source: Patient Exam Limitations: No Limitations - History of Present Illness Initial Comments: 03/28/18 08:35 Patient came to the emergency department for evaluation of acute on chronic back pain, ran out of tramadol as well as severe itching and perineal discomfort with a white drainage 3-4 days. Timing/Duration: unsure Severity: mild Associated Symptoms: reports: malaise. denies: fever/chills, headaches Past History - Travel Traveled outside of the country in the last 30 days: No Close contact w/someone who was outside of country & ill: No - Past Medical History Allergies/Adverse Reactions: Allergies Allergy/AdvReac Type Severity Reaction Status Date / Time banana [Banana] Allergy Intermediate Hives Verified 01/05/18 14:19 No Known Drug Allergies Allergy Verified 01/05/18 14:19 raspberry AdvReac Severe Hives Verified 01/05/18 14:19 mushroom AdvReac Intermediate Hives Uncoded 01/05/18 14:19 Home Medications: Ambulatory Orders Enalapril Maleate [Vasotec -] 10 mg PO DAILY 12/18/17 Fluconazole [Diflucan] 150 mg PO ONCE #1 tablet 03/28/18 traMADol HCL [Ultram -] 50 mg PO Q8H #6 tablet MDD 3 03/28/18 Asthma: Yes COPD: No GI Disorders: Yes (GERD) Disorders: No HTN: Yes Psychiatric Problems: Yes (ANXIETY) Thyroid Disease: No - Surgical History Abdominal Surgery: Yes - Immunization History Immunization Up to Date: Yes - Suicide/Smoking/Psychosocial Hx Smoking Status: Yes Smoking History: Current every day smoker Have you smoked in the past 12 months: Yes Number of Cigarettes Smoked Daily: 15 Information on smoking cessation initiated: No 'Breaking Loose' booklet given: 01/05/18 Hx Alcohol Use: No Drug/Substance Use Hx: No Substance Use Type: None Review of Systems - Review of Systems Able to Perform ROS?: Yes Is the patient limited Tamazight proficient: Yes Constitutional: Yes: Symptoms Reported, See HPI. No: Fever, Malaise HEENTM: Yes: See HPI. No: Symptoms Reported Respiratory: Yes: See HPI. No: Symptoms reported, Cough ABD/GI: No: Symptoms Reported : Yes: Symptoms Reported, See HPI, Burning (swelling and white drainaqe ), Discharge Musculoskeletal: Yes: Symptoms Reported, See HPI, Back Pain Integumentary: Yes: See HPI. No: Symptoms Reported, Bruising All Other Systems: Reviewed and Negative *Physical Exam - Vital Signs Last Vital Signs Temp Pulse Resp BP Pulse Ox 98.0 F 84 16 135/75 99 03/28/18 07:30 03/28/18 07:30 03/28/18 07:30 03/28/18 07:30 03/28/18 07:30 - Physical Exam General Appearance: Yes: Nourished, Appropriately Dressed, Apparent Distress, Mild Distress HEENT: positive: ANASTASIA, Normal ENT Inspection, TMs Normal, Pharynx Normal Neck: positive: Supple, Lymphadenopathy (R), Lymphadenopathy (L). negative: Tender Respiratory/Chest: positive: Lungs Clear, Normal Breath Sounds Female Pelvic Exam: positive: normal external exam, other (swelling to external and internal labia with white thick exudate/drainage consistent with a candidal type appearance) Gastrointestinal/Abdominal: positive: Soft. negative: Tender Musculoskeletal: positive: Normal Inspection, Decreased Range of Motion ( secondary to low back strain, worse on the left than the right. Has no true spine tenderness crepitus or step-offs.). negative: CVA Tenderness, Vertebral Tenderness Extremity: positive: Normal Inspection. negative: Normal Capillary Refill Integumentary: positive: Normal Color, Warm Neurologic: positive: boat officer II-XII NML intact, Fully Oriented, Alert, Normal Mood/ Affect, Normal Response, Motor Strength 5/5 *DC/Admit/Observation/Transfer Diagnosis at time of Disposition: Candidiasis of female genitalia Chronic low back pain Qualifiers: Back pain laterality: unspecified Sciatica presence: without sciatica Qualified Code(s): M54.5 - Low back pain Back pain Qualifiers: Back pain location: low back pain Chronicity: acute Back pain laterality: bilateral Sciatica presence: without sciatica Qualified Code(s): M54.5 - Low back pain - Discharge Dispostion Disposition: HOME Condition at time of disposition: Stable Decision to Admit order: No - Prescriptions Prescriptions: Fluconazole [Diflucan] 150 mg PO ONCE #1 tablet traMADol HCL [Ultram -] 50 mg PO Q8H #6 tablet MDD 3 - Referrals Referrals: Jose Alaniz [Primary Care Provider] - - Patient Instructions Printed Discharge Instructions: DI for Vaginal Yeast Infection, DI for Chronic Pain -- Adult Additional Instructions: Wash thoroughly with gentle soaps and dry thoroughly May use Vagisil or soothing creams, aloe Wear loose fitting clothing cotton underwear Avoid sexual activity until infection is resolved May use Tylenol or Motrin for pain relief May continue Benadryl for itching as needed Follow-up with [facility] or if worsening - Post Discharge Activity Forms/Work/School Notes: Back to Work
[2018-03-28] MEDS ORDERED: KETOROLAC TROMETHAMINE 60 MG/2 ML VIAL IM ONE (08:28)
[2018-03-28] MEDS ORDERED: KETOROLAC TROMETHAMINE 60 MG/2 ML VIAL ONE (08:32)
== END 2018-03-28 08:55 | disposition home or self-care (01) ==
LOC: JERFT 07:11
PROC: 3E0233Z Introduction of Anti-inflammatory into Muscle, Percutaneous Approach (ICD-10-PCS; principal; 2018-03-28)
DX: B37.3 Candidiasis of vulva and vagina (principal); M54.5 Low back pain
CPT/HCPCS: 96372; 99281-25

== ENCOUNTER 2018-04-29 11:27 | Emergency (ER) | payer OTHER ==
[2018-04-29 11:35] VITALS: TEMP 97.7; BMI 35.6
--- NOTE | 2018-04-29 13:10 | PDOC ---
History of Present Illness - General History Source: Patient Exam Limitations: No Limitations - History of Present Illness Initial Comments: 04/29/18 13:26 The patient is a 52-year-old female with past medical history of asthma (no prior hospitalization or intubations), GERD, HTN, hx of panic/anxiety attacks, and cluster headache presents to the emergency department with R. arm pain and nausea. The patient presents with an intermittent pain to the R. arm for the past 2 weeks, with a new onset of nausea and headache, without modifying factors. The patient states she can make a fist and reach high while the pain is present. The patient reports a chronic history of a back problem, states a doctor informed her that the pain would eventually travel up to her neck. The patient reports she was researching the signs and symptoms and became concerned and wanted to be evaluated. Patient reports she has an appointment with Ortho tomorrow. Denies chest pain/tightness or shortness of breath. Denies leg swelling. Denies fever, chills, cough or a headache. Denies vomit, diarrhea or constipation. Allergies: NKDA, banana, raspberry and mushrooms. Social history: Patient is a current everyday smoker, about 20 cigarettes/day. Denies the use of alcohol or recreational drugs. Surgical history: arthroscopy left knee with partial MM, chondroplasty trochlea , partial ACL debridement by Dr. Gould. LMP: April 05, 2018 (Irregular). PCP: Jose Rushing Neurologist: Dr. Vail (appointment at May 14). <Hermelinda Arora - Last Filed: 04/29/18 13:39> <Sherin Lora - Last Filed: 04/29/18 15:31> - General Chief Complaint: Pain Stated Complaint: PAIN/ ARM, HEAD Past History <Hermelinda Arora - Last Filed: 04/29/18 13:39> - Past Medical History Asthma: Yes COPD: No GI Disorders: Yes (GERD) Disorders: No HTN: Yes Psychiatric Problems: Yes (ANXIETY) Thyroid Disease: No - Surgical History Abdominal Surgery: Yes - Immunization History Immunization Up to Date: Yes - Suicide/Smoking/Psychosocial Hx Smoking Status: Yes Smoking History: Current every day smoker Have you smoked in the past 12 months: Yes Number of Cigarettes Smoked Daily: 20 Information on smoking cessation initiated: No 'Breaking Loose' booklet given: 01/05/18 Hx Alcohol Use: No Drug/Substance Use Hx: No Substance Use Type: None <Sherin Lora - Last Filed: 04/29/18 15:31> - Past Medical History Allergies/Adverse Reactions: Allergies Allergy/AdvReac Type Severity Reaction Status Date / Time banana [Banana] Allergy Intermediate Hives Verified 04/29/18 11:30 No Known Drug Allergies Allergy Verified 04/29/18 11:30 raspberry AdvReac Severe Hives Verified 04/29/18 11:30 mushroom AdvReac Intermediate Hives Uncoded 04/29/18 11:30 Home Medications: Ambulatory Orders Enalapril Maleate [Vasotec -] 10 mg PO DAILY 12/18/17 Aspirin [Aspirin EC] 81 mg PO DAILY 04/29/18 traMADol HCL [Ultram -] 50 mg PO PRN PRN MDD 3 04/29/18 Review of Systems - Review of Systems Able to Perform ROS?: Yes Comments:: 04/29/18 13:26 GENERAL/CONSTITUTIONAL: No fever or chills. No weakness. HEAD, EYES, EARS, NOSE AND THROAT: No change in vision. No ear pain or discharge. No sore throat. CARDIOVASCULAR: No chest pain or shortness of breath. RESPIRATORY: No cough, wheezing, or hemoptysis. GASTROINTESTINAL: (+) nausea. No vomiting, diarrhea or constipation. GENITOURINARY: No dysuria, frequency, or change in urination. MUSCULOSKELETAL: (+) R. arm pain. No joint or muscle swelling or pain. No neck. (+) chronic back pain. SKIN: No rash NEUROLOGIC: (+) headache. No vertigo, loss of consciousness, or change in strength/sensation. ENDOCRINE: No increased thirst. No abnormal weight change. HEMATOLOGIC/LYMPHATIC: No anemia, easy bleeding, or history of blood clots. ALLERGIC/IMMUNOLOGIC: No hives or skin allergy. <Hermelinda Arora - Last Filed: 04/29/18 13:39> *Physical Exam - Vital Signs Last Vital Signs Temp Pulse Resp BP Pulse Ox 97.7 F 81 18 139/86 98 04/29/18 11:30 04/29/18 11:30 04/29/18 11:30 04/29/18 11:30 04/29/18 11:30 <Hermelinda Arora - Last Filed: 04/29/18 13:39> - Vital Signs Last Vital Signs Temp Pulse Resp BP Pulse Ox 97.7 F 81 18 139/86 98 04/29/18 11:30 04/29/18 11:30 04/29/18 11:30 04/29/18 11:30 04/29/18 11:30 - Physical Exam General Appearance: Yes: Appropriately Dressed Neck: positive: Trachea midline Respiratory/Chest: positive: Lungs Clear, Normal Breath Sounds Cardiovascular: positive: Regular Rhythm, Regular Rate, S1, S2 Gastrointestinal/Abdominal: positive: Normal Bowel Sounds, Flat, Soft. negative : Tender Musculoskeletal: positive: Normal Inspection. negative: CVA Tenderness, CVA Tenderness (R) Extremity: positive: Normal Capillary Refill, Normal Inspection, Normal Range of Motion Integumentary: positive: Normal Color, Dry, Warm Neurologic: positive: electric track switch maintainer II-XII NML intact, Fully Oriented, Alert, Normal Mood/ Affect, Motor Strength 5/5, Other (no mildline spinal tenderness. 5/5 bilat upper and lower ext strength. sensation intact. ) <Sherin Lora - Last Filed: 04/29/18 15:31> Heart Score/ECG Review #1 General ECG Interpretation: Sinus Rhythm, Normal Rate (67), Normal Intervals, No acute ischemic changes <Sherin Lora - Last Filed: 04/29/18 15:31> ED Treatment Course - LABORATORY CBC & Chemistry Diagram: 04/29/18 13:20 04/29/18 13:20 <Hermelinda Arora - Last Filed: 04/29/18 13:39> - LABORATORY CBC & Chemistry Diagram: 04/29/18 13:20 04/29/18 13:20 <Sherin Lora - Last Filed: 04/29/18 15:31> Medical Decision Making - Medical Decision Making 04/29/18 13:09 52 yo F h/o anxiety panic attacks here with c/o right arm pain and tingling palpitations with nausea. pt has been under a lot of stress recently due to of neice, and grandmother. differential elecytrolyte abnoramlity, radicular pain, anemia, atypical acs. less likely. plan ekg labs cxr asa. 07/25/18 15:29 pt with radicular pain, normal neuro exam, no weakness. labs and ekg unremarkable. given tylenol for pain. pt has followup with nuerology with dr. vail scheduled and given referral for mirna for anxiety as h/o panic attacks. <Sherin Lora - Last Filed: 04/29/18 15:31> *DC/Admit/Observation/Transfer <Hermelinda Arora - Last Filed: 04/29/18 13:39> - Discharge Dispostion Decision to Admit order: No <Sherin Lora - Last Filed: 04/29/18 15:31> Diagnosis at time of Disposition: Radicular pain in right arm, Panic anxiety syndrome - Discharge Dispostion Disposition: HOME Condition at time of disposition: Improved - Referrals Referrals: Jose Alaniz [Primary Care Provider] - Sean Gordon MD [Staff Physician] - Aby Cook MD [Staff Physician] - - Patient Instructions Printed Discharge Instructions: Anxiety Disorders, DI for Cervical Radiculopathy Additional Instructions: you can take tylenol 500 mg every 6 hrs as needed for pain. you should also follow up with a psychiatrist call dr. bradley to schedule see referral information. you can also follow up with a foil cutter. call dr. francis to schedule. return for any problems or concerns you should stop smoking. follow up with dr. vail as scheduled. return for any weakness, numbness or concerns.
[2018-04-29 13:28] LABS: EOS % 4.4 % (0-4.5); HEMATOCRIT 40.5 % (32.4-45.2); HEMOGLOBIN 13.3 GM/dL (10.7-15.3); LYMPH % 42.8 % (8-40); MCH 26.6 pg (25.7-33.7); MCHC 32.8 g/dl (32.0-36.0); MEAN PLT VOLUME 7.9 fl (7.5-11.1); MONO % 4.9 % (3.8-10.2); NEUT % 46.9 % (42.8-82.8); PLATELET COUNT 385 K/MM3 (134-434); RBC 5.01 M/mm3 (3.60-5.2); RDW 15.4 % (11.6-15.6); WHITE BLOOD COUNT 7.9 K/mm3 (4.0-10.0)
[2018-04-29 13:57] LABS: ALBUMIN 4.1 g/dl (3.4-5.0); ALK PHOS 90 U/L (45-117); ANION GAP 7 (8-16); BILIRUBIN,TOTAL 0.4 mg/dL (0.2-1.0); BLOOD UREA NITROGEN 10 mg/dL (7-18); CALCIUM 9.1 mg/dL (8.5-10.1); CHLORIDE 109 mmol/L (98-107); CO2 26 mmol/L (21-32); CREATININE 0.7 mg/dL (0.55-1.02); GLUCOSE,RANDOM 99 mg/dL (74-106); POTASSIUM 4.6 mmol/L (3.5-5.1); SGOT/AST 23 U/L (15-37); SGPT/ALT 32 U/L (12-78); SODIUM 142 mmol/L (136-145); TOT PROT 7.4 g/dl (6.4-8.2)
[2018-04-29] MEDS ORDERED: ASPIRIN 81 MG CHEWABLE TABLETS PO ONE (14:10)
[2018-04-29] MEDS ORDERED: ACETAMINOPHEN 500 MG TABLET (FP) PO ONE (14:11)
[2018-04-29] MEDS ORDERED: ASPIRIN 81 MG CHEWABLE TABLETS ONE (14:16)
[2018-04-29] MEDS ORDERED: ACETAMINOPHEN 325 MG TABLET (FP) ONE (14:16)
--- NOTE | 2018-04-29 15:49 | EKG ---
Test Reason : Blood Pressure : / mmHG Vent. Rate : 067 BPM Atrial Rate : 067 BPM P-R Int : 162 ms QRS Dur : 086 ms QT Int : 392 ms P-R-T Axes : 070 084 043 degrees QTc Int : 414 ms NORMAL SINUS RHYTHM NORMAL ECG WHEN COMPARED WITH ECG OF 25-OCT-2015 09:43, NO SIGNIFICANT CHANGE WAS FOUND Confirmed by RICHY STEPHENS MD ([id number]) on 04/29/2018 3:49:41 PM Referred By: Confirmed By:RICHY STEPHENS MD
[2018-04-29 16:32] VITALS: BP 139/85; PULSE 84
== END 2018-04-29 16:30 | disposition home or self-care (01) ==
LOC: JER 11:27
DX: M79.601 Pain in right arm (principal); J45.909 Unspecified asthma, uncomplicated; K21.9 Gastro-esophageal reflux disease without esophagitis; I10 Essential (primary) hypertension; F41.0 Panic disorder [episodic paroxysmal anxiety]; F17.210 Nicotine dependence, cigarettes, uncomplicated
CPT/HCPCS: 36415; 71046-TC-FY; 80053; 82550; 84484; 85025; 93005; 93010; 99283-25

== ENCOUNTER 2018-07-15 11:34 | Emergency (ER) | payer OTHER ==
[2018-07-15 11:55] VITALS: BP 140/90; PULSE 88; TEMP 98; BMI 34.7
--- NOTE | 2018-07-15 14:01 | PDOC ---
History of Present Illness - General Chief Complaint: Rash Stated Complaint: RASH Time Seen by Provider: 07/15/18 13:51 History Source: Patient Exam Limitations: No Limitations - History of Present Illness Initial Comments: 07/15/18 13:55 3 weeks itchy rash started at ankles, now to arm hands and hairline. 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 no fever no change in medications . Benadryl not helping with the itching, keeping patient up at night. 07/15/18 14:09 Severity: Yes: mild Location: reports: extremities Respiratory Risk Factors: reports: no cause identified, insect bite Past History - Past Medical History Allergies/Adverse Reactions: Allergies Allergy/AdvReac Type Severity Reaction Status Date / Time banana [Banana] Allergy Intermediate Hives Verified 07/15/18 11:57 No Known Drug Allergies Allergy Verified 07/15/18 11:57 raspberry AdvReac Severe Hives Verified 07/15/18 11:57 mushroom AdvReac Intermediate Hives Uncoded 07/15/18 11:57 Home Medications: Ambulatory Orders Enalapril Maleate [Vasotec -] 10 mg PO DAILY 12/18/17 Aspirin [Aspirin EC] 81 mg PO DAILY 04/29/18 traMADol HCL [Ultram -] 50 mg PO PRN PRN MDD 3 04/29/18 Hydrocortisone 1% Cream [Hytone 1% Cream -] 1 applic TP TID #1 tube 07/15/18 Permethrin 5% Topical Cream [Elimite -] 1 applic TP ONCE #2 tube 07/15/18 hydrOXYzine HCL [Atarax -] 25 mg PO TID PRN #21 tablet 07/15/18 Asthma: Yes COPD: No GI Disorders: Yes (GERD) Disorders: No HTN: Yes Psychiatric Problems: Yes (ANXIETY) Thyroid Disease: No - Surgical History Abdominal Surgery: Yes - Immunization History Immunization Up to Date: Yes - Suicide/Smoking/Psychosocial Hx Smoking Status: Yes Smoking History: Never smoked Have you smoked in the past 12 months: No Number of Cigarettes Smoked Daily: 20 Information on smoking cessation initiated: No 'Breaking Loose' booklet given: 01/05/18 Hx Alcohol Use: No Drug/Substance Use Hx: No Substance Use Type: None Review of Systems - Review of Systems Able to Perform ROS?: Yes Is the patient limited [place]an proficient: No Constitutional: No: Symptoms Reported HEENTM: No: Symptoms Reported Respiratory: No: Symptoms reported Cardiac (ROS): No: Symptoms Reported ABD/GI: No: Symptoms Reported : No: Symptoms Reported Musculoskeletal: No: Symptoms Reported Integumentary: Yes: Symptoms Reported *Physical Exam - Vital Signs Last Vital Signs Temp Pulse Resp BP Pulse Ox 98.0 F 88 16 140/90 100 07/15/18 11:51 07/15/18 11:51 07/15/18 11:51 07/15/18 11:51 07/15/18 11:51 - Physical Exam General Appearance: Yes: Nourished, Appropriately Dressed HEENT: positive: EOMI, ANASTASIA, Normal ENT Inspection, TMs Normal, Pharynx Normal Neck: positive: Supple. negative: Tender Respiratory/Chest: positive: Lungs Clear, Normal Breath Sounds. negative: Chest Tender Cardiovascular: positive: Regular Rhythm, Regular Rate Gastrointestinal/Abdominal: positive: Normal Bowel Sounds, Soft Musculoskeletal: positive: Normal Inspection Extremity: positive: Normal Capillary Refill, Normal Inspection, Normal Range of Motion. negative: Tender Integumentary: positive: Normal Color, Dry, Warm, Rash (ankles with multiple red maculpapular lesions, hands with same hairline with same , linear rodriguez on left inner wrist) Neurologic: positive: Fully Oriented, Alert, Normal Mood/Affect, Normal Response , Motor Strength 5/5 Medical Decision Making - Medical Decision Making 07/15/18 14:04 cc:itchy rash possible flea bites possible scabies however unlikely as her has no symptoms of rash no cough fever or abd pain pt states her dogs may have flea infestations, she has had them bathed and has had ic engineer in the house will prescribe atarax, hydrocortisone cream, permetherin cream 07/15/18 14:09 *DC/Admit/Observation/Transfer Diagnosis at time of Disposition: Pruritus - Discharge Dispostion Disposition: HOME Condition at time of disposition: Good - Prescriptions Prescriptions: Hydrocortisone 1% Cream [Hytone 1% Cream -] 1 applic TP TID #1 tube hydrOXYzine HCL [Atarax -] 25 mg PO TID PRN #21 tablet PRN Reason: itching Permethrin 5% Topical Cream [Elimite -] 1 applic TP ONCE #2 tube - Referrals Referrals: Jose Alaniz [Primary Care Provider] - Guanaco Manrique MD [Staff Physician] - - Patient Instructions Additional Instructions: follow with ENT and allergy at [phone] use the prescribed medication as directed - Post Discharge Activity
== END 2018-07-15 14:11 | disposition home or self-care (01) ==
LOC: JERFT 11:34
DX: L29.9 Pruritus, unspecified (principal); Z87.891 Personal history of nicotine dependence; F41.9 Anxiety disorder, unspecified; I10 Essential (primary) hypertension; J45.909 Unspecified asthma, uncomplicated
CPT/HCPCS: 99281-25

== ENCOUNTER 2018-09-27 08:40 | Emergency (ER) | payer OTHER ==
[2018-09-27 09:03] VITALS: TEMP 98.1; BMI 35.6
[2018-09-27 09:09] VITALS: BP 139/96; PULSE 103
[2018-09-27] MEDS ORDERED: KETOROLAC TROMETHAMINE 60 MG/2 ML VIAL IM ONE (09:16)
[2018-09-27] MEDS ORDERED: KETOROLAC TROMETHAMINE 60 MG/2 ML VIAL ONE (09:20)
--- NOTE | 2018-09-27 09:35 | PDOC ---
History of Present Illness - General Chief Complaint: Pain Stated Complaint: HEART BURN,BACK PAIN Time Seen by Provider: 09/27/18 09:16 History Source: Patient Exam Limitations: No Limitations - History of Present Illness Travel History: No Initial Comments: 09/27/18 8:56 Patient came to the emergency department for reevaluation of recurrent reflux. Patient had EGD performed approximately 3 weeks ago and was placed on an additional GERD medication pantoprazole but has not been taking as prescribed. Take Nexium daily. Denies fever, denies cough, denies any shortness of breath, palpitations or dizziness. Is concerned that after EGD exacerbated worse problem with her reflux. Patient states continues using Motrin for back pain, drinks coffee, and smokes regularly. Timing/Duration: reports: getting worse, changing over time Quality: reports: mild Abdominal Pain Onset Location: reports: epigastric Pain Radiation: reports: no radiation Activities at Onset: reports: none Aggravating Factors: improves with: None, Eating Past History - Travel Traveled outside of the country in the last 30 days: No Close contact w/someone who was outside of country & ill: No - Past Medical History Allergies/Adverse Reactions: Allergies Allergy/AdvReac Type Severity Reaction Status Date / Time banana [Banana] Allergy Intermediate Hives Verified 09/27/18 08:49 No Known Drug Allergies Allergy Verified 09/27/18 08:49 raspberry AdvReac Severe Hives Verified 09/27/18 08:49 mushroom AdvReac Intermediate Hives Uncoded 09/27/18 08:49 Home Medications: Ambulatory Orders Enalapril Maleate [Vasotec -] 10 mg PO DAILY 12/18/17 Aspirin [Aspirin EC] 81 mg PO DAILY 04/29/18 Asthma: Yes COPD: No GI Disorders: Yes (GERD) Disorders: No HTN: Yes Psychiatric Problems: Yes (ANXIETY) Thyroid Disease: No - Surgical History Abdominal Surgery: Yes - Immunization History Immunization Up to Date: Yes - Suicide/Smoking/Psychosocial Hx Smoking Status: Yes Smoking History: Current every day smoker Have you smoked in the past 12 months: No Number of Cigarettes Smoked Daily: 5 Information on smoking cessation initiated: No 'Breaking Loose' booklet given: 01/05/18 Hx Alcohol Use: No Drug/Substance Use Hx: No Substance Use Type: None Review of Systems - Review of Systems Able to Perform ROS?: Yes Is the patient limited Nigerien proficient: Yes Constitutional: Yes: Symptoms Reported, See HPI, Malaise. No: Fever HEENTM: Yes: See HPI. No: Symptoms Reported Respiratory: Yes: See HPI. No: Symptoms reported, Cough, Wheezing Cardiac (ROS): Yes: See HPI. No: Symptoms Reported *Physical Exam - Vital Signs Last Vital Signs Temp Pulse Resp BP Pulse Ox 98.1 F 103 H 18 139/96 98 09/27/18 08:49 09/27/18 09:09 09/27/18 08:49 09/27/18 09:09 09/27/18 08:49 - Physical Exam General Appearance: Yes: Nourished, Appropriately Dressed, Mild Distress. No: Apparent Distress HEENT: positive: ANASTASIA, TMs Normal, Pharynx Normal, Other (no redness, swelling, exudate on the abrasions or erosions noted in posterior pharynx. Airway is patent) Neck: positive: Supple. negative: Tender, Lymphadenopathy (R), Lymphadenopathy (L) Respiratory/Chest: positive: Lungs Clear Gastrointestinal/Abdominal: positive: Soft. negative: Normal Bowel Sounds, Tender Musculoskeletal: positive: Normal Inspection Extremity: positive: Normal Capillary Refill, Normal Inspection Integumentary: positive: Dry, Warm, Pale Neurologic: positive: health service coordinator II-XII NML intact, Fully Oriented, Alert, Normal Response Moderate Sedation - Procedure Monitoring Vital Signs: Procedure Monitoring Vital Signs Temperature 98.1 F 09/27/18 08:49 Pulse Rate 103 H 09/27/18 09:09 Respiratory Rate 18 09/27/18 08:49 Blood Pressure 139/96 09/27/18 09:09 O2 Sat by Pulse Oximetry (%) 98 09/27/18 08:49 Heart Score/ECG Review - ECG Intrepretation Rhythm: Regular Rhythm - [place]: Normal - ST and T Non Specific ST-T Wave changes: No - ECG Impressions Normal ECG: Yes Non-specific ST Elevation: No Progress Note - Progress Note Progress Note: Reflux patient noncompliant with medications and homeopathic regime. encouraged use of prescribed medications, reduction and caffeine, fatty foods, and cigarette *DC/Admit/Observation/Transfer Diagnosis at time of Disposition: Reflux gastritis - Discharge Dispostion Disposition: HOME Condition at time of disposition: Stable Decision to Admit order: No - Referrals Referrals: Jose Alaniz [Primary Care Provider] - - Patient Instructions Printed Discharge Instructions: DI for Gastroesophageal Reflux Disease (GERD), GERD Diet Additional Instructions: Rest, drink lots of fluids: Teas, water, soups Courtney horacio, carbonated beverages for the bubbles May try peppermint teas Avoid heavy , spicy or fatty foods until symptoms have resolved Continue toyr-eox-koyccyt medications for symptomatic relief Tylenol or Motrin for fever and pain Take pantoprazole as prescribed daily Followup with private physician in one to 2 days as needed Return to emergency department for worsened symptoms, fevers, dehydration - Post Discharge Activity Forms/Work/School Notes: Back to Work
--- NOTE | 2018-09-28 07:16 | EKG ---
Test Reason : Blood Pressure : / mmHG Vent. Rate : 100 BPM Atrial Rate : 100 BPM P-R Int : 166 ms QRS Dur : 084 ms QT Int : 348 ms P-R-T Axes : 071 081 048 degrees QTc Int : 448 ms NORMAL SINUS RHYTHM NORMAL ECG WHEN COMPARED WITH ECG OF 29-APR-2018 13:46, VENT. RATE HAS INCREASED BY 33 BPM Confirmed by CORI RAMESH MD ([id number]) on 09/28/2018 7:16:10 AM Referred By: Confirmed By:CORI RAMESH MD
== END 2018-09-27 10:00 | disposition home or self-care (01) ==
LOC: JER 08:40
PROC: 3E0233Z Introduction of Anti-inflammatory into Muscle, Percutaneous Approach (ICD-10-PCS; principal; 2018-09-27)
DX: K21.9 Gastro-esophageal reflux disease without esophagitis (principal); I10 Essential (primary) hypertension; F17.210 Nicotine dependence, cigarettes, uncomplicated
CPT/HCPCS: 93005; 93010; 99281-25

== ENCOUNTER 2018-12-17 07:44 | Emergency (ER) | payer OTHER ==
[2018-12-17 08:07] VITALS: BP 136/87; PULSE 71; TEMP 97.7; BMI 35.9
--- NOTE | 2018-12-17 08:42 | PDOC ---
History of Present Illness <Anthony Flynn - Last Filed: 12/17/18 09:27> - General History Source: Patient Exam Limitations: No Limitations - History of Present Illness Initial Comments: HPI: 53 y/o female presenting to [facility] ER complaining of left sided facial swelling and pain to face, eye, ear, and throat. Sensation is described as constant, dull , and achy. Started in October. Was evaluated by neurology, ENT, and her PCP. Underwent a MRI, which was unremarkable. Endorses a history of migraines but states she kept a symptom journal and found no correlation. States she became concerned yesterday because of the facial swelling and decided she would seek emergency evaluation in the morning. Denies difficulty or pain with chewing. No sensitivity to hot or cold symptoms. No URI symptoms. No recent dental surgery. Last evaluated by dentist in summer 2017. Medical Hx: - Migraines on Topamax - HTN - Allergies - Chronic Back Pain <Jimmy Serrato - Last Filed: 12/17/18 09:44> - General Chief Complaint: Pain Stated Complaint: NUMBNESS LEFT SIDE AND SWELLING Time Seen by Provider: 12/17/18 08:12 Past History <Anthony Flynn - Last Filed: 12/17/18 09:27> - Past Medical History Asthma: Yes COPD: No GI Disorders: Yes (GERD) Disorders: No HTN: Yes Psychiatric Problems: Yes (ANXIETY) Thyroid Disease: No Other medical history: migraine, - Surgical History Abdominal Surgery: Yes - Immunization History Immunization Up to Date: Yes - Suicide/Smoking/Psychosocial Hx Smoking Status: Yes Smoking History: Unknown if ever smoked Have you smoked in the past 12 months: No Number of Cigarettes Smoked Daily: 5 'Breaking Loose' booklet given: 01/05/18 Hx Alcohol Use: No Drug/Substance Use Hx: No Substance Use Type: None <Jimmy Serrato - Last Filed: 12/17/18 09:44> - Past Medical History Allergies/Adverse Reactions: Allergies Allergy/AdvReac Type Severity Reaction Status Date / Time banana [Banana] Allergy Intermediate Hives Verified 12/17/18 08:07 No Known Drug Allergies Allergy Verified 12/17/18 08:07 raspberry AdvReac Severe Hives Verified 12/17/18 08:07 mushroom AdvReac Intermediate Hives Uncoded 12/17/18 08:07 Home Medications: Ambulatory Orders Aspirin [Aspirin EC] 81 mg PO DAILY 04/29/18 Enalapril Maleate [Vasotec] 20 mg PO DAILY #14 tablet 12/17/18 Omeprazole 20 mg PO DAILY 12/17/18 Topiramate [Topamax -] mg PO ASDIR 12/17/18 Review of Systems - Review of Systems Able to Perform ROS?: Yes Comments:: In addition to that documented in the HPI above, the additional ROS was obtained : Constitutional: Denies fevers or chills Head: Denies migraine, hearing changes, or vision changes ENMT: Per HPI. CV: Denies chest pain Resp: Denies SOB GI: Denies vomiting or diarrhea : Denies painful urination MSK: Denies recent trauma Skin: Denies new rashes Neuro: Denies new numbness or tingling or weakness Endocrine: Denies polyuria Heme: Denies bleeding or bruising <Jimmy Serrato - Last Filed: 12/17/18 09:44> *Physical Exam - Vital Signs Last Vital Signs Temp Pulse Resp BP Pulse Ox 97.7 F 71 18 136/87 100 12/17/18 08:06 12/17/18 08:06 12/17/18 08:06 12/17/18 08:06 12/17/18 08:06 <Anthony Flynn - Last Filed: 12/17/18 09:27> - Vital Signs Last Vital Signs Temp Pulse Resp BP Pulse Ox 97.7 F 71 18 136/87 100 12/17/18 08:06 12/17/18 08:06 12/17/18 08:06 12/17/18 08:06 12/17/18 08:06 - Physical Exam Comments: Constitutional: Well-developed, well-nourished, non-toxic adult female in no acute distress or obvious discomfort. Found semi-fowlers on hospital bed. Alert and oriented x4. Answered all questions appropriately and completely. Speech was non-labored, non-pressured. Head: Normocephalic. No obvious external signs of trauma. Trace to no swelling to left side of face. No skin lesions. Mild tenderness to infraorbital region but no significant maxillary or frontal sinus tenderness. No auricular tenderness. No TMJ tenderness. No mastoid tenderness. Eyes: Sclerae white. Conjunctiva moist and not injected. Ears: External auditory canals and tympanic membranes pearly gonzales. Hearing grossly intact. Nose: No nasal discharge. Throat: Oral cavity and pharynx normal. No inflammation, swelling, exudate, or lesions. Teeth and gingiva in good general condition. Neck: Supple, trachea is midline. Cardiovascular / Chest: Regular rate and regular rhythm. No murmur, rubs, clicks, or gallops. Peripheral pulses: radial pulses full. Respiratory: Breathing unlabored. Equal chest rise and fall. Clear to auscultation bilaterally. No stridor, no wheezing, no rhonchi. Neuro: Alert and oriented. Moving all four extremities spontaneously. Skin: Warm, dry, and intact. Lymphatics: No cervical, supraclavicular, or posterior auricular nodes palpated. Psych: Affect: appropriate. Mood: normal. <Jimmy Serrato - Last Filed: 12/17/18 09:44> Moderate Sedation - Procedure Monitoring Vital Signs: Procedure Monitoring Vital Signs Temperature 97.7 F 12/17/18 08:06 Pulse Rate 71 12/17/18 08:06 Respiratory Rate 18 12/17/18 08:06 Blood Pressure 136/87 12/17/18 08:06 O2 Sat by Pulse Oximetry (%) 100 12/17/18 08:06 <Anthony Flynn - Last Filed: 12/17/18 09:27> - Procedure Monitoring Vital Signs: Procedure Monitoring Vital Signs Temperature 97.7 F 12/17/18 08:06 Pulse Rate 71 12/17/18 08:06 Respiratory Rate 18 12/17/18 08:06 Blood Pressure 136/87 12/17/18 08:06 O2 Sat by Pulse Oximetry (%) 100 12/17/18 08:06 <Jimmy Serrato - Last Filed: 12/17/18 09:44> Medical Decision Making - Medical Decision Making *Reviewed vital signs, nursing notes, and prior visit documentation (if available). 53 y/o female with acute on chronic left sided facial pain. S/p significant outpatient workup. Now concerned with swelling and persistent pain. Afebrile. Vitals unremarkable for hypotension or tachycardia. Physical exam as described above. Very well appearing. Low suspicion for trigeminal neuralgia as pain is not described as shooting or stabbing. Low suspicion for superior cavernous syndrome, bacterial sinusitis, dental abscess, otitis media, otitis externa, or mastoiditis. Will refer back to ENT. Suggested switching allergy medications. Pt expressed dissatisfaction with prior PCP. Will place referral for resident clinic. Sent prescription for Enalapril, pts maintenance antihypertensive. <Jimmy Serrato - Last Filed: 12/17/18 09:44> *DC/Admit/Observation/Transfer <Anthony Flynn - Last Filed: 12/17/18 09:27> - Discharge Dispostion Decision to Admit order: No <Jimmy Serrato - Last Filed: 12/17/18 09:44> Diagnosis at time of Disposition: Sinusitis Qualifiers: Sinusitis location: maxillary Chronicity: subacute Qualified Code(s): J01.00 - Acute maxillary sinusitis, unspecified - Discharge Dispostion Disposition: HOME Condition at time of disposition: Good - Prescriptions Prescriptions: Enalapril Maleate [Vasotec] 20 mg PO DAILY #14 tablet - Referrals Referrals: Rory Muniz MD [Staff Physician] - Arnie Gaviria MD [Staff Physician] - [facility] [place] [Provider Group] - Patient Instructions Printed Discharge Instructions: DI for Sinusitis Additional Instructions: You were seen today for left sided facial pain and possible swelling. Your physical exam is reassuring today. Your symptoms are not likely to be life threatening. It may be related to your smoking habit. You should consider stopping! You should follow up with an ENT provider. I have placed a referral for you to see Dr. Gaviria. You will need to call to make an appointment. The number is included in this packet. Please follow up with a primary care physician within the next week. I have placed a referral for you to see the [facility] Internal Medicine clinic at [place]. You will need to call to make an appointment. The number is [phone]. The address is as follows: [address] [place] [address] You can take over the counter Tylenol or Advil as needed for pain. Take as directed on the package insert. Do not exceed the recommended dosage. Go to the nearest emergency department if your condition worsens or you feel like you need additional emergency evaluation. Print Language: JAPANESE
--- NOTE | 2018-12-17 09:27 | PDOC ---
Attending Attestation - Resident Resident Name: Jimmy Serrato - ED Attending Attestation I have performed the following: I have examined & evaluated the patient, The case was reviewed & discussed with the resident, I agree w/resident's findings & plan - HPI HPI: 12/17/18 09:24 53-year-old female with history of hypertension, seasonal ALLERGIES, smoking presents with 2 months of intermittent left maxillary sinus pain, negative workups with neurology including MRI, ENT, and PCP presents for evaluation due to persistence of intermittent left mid face discomfort and subjective feeling of swelling yesterday. Admittedly, has had increased ALLERGIC rhinitis over the last week, presents today because her doctors have not been able to figure this out. She takes Zyrtec without relief, Claritin does not help her, no history of fevers or chills. No rash, no vision change, no dental pain, no headache or focal deficit, no ear pain or hearing changes. - Physicial Exam PE: 12/17/18 09:25 Vital signs are normal Well-appearing seated in stretcher speaking full sentences No facial asymmetry, swelling, redness Some reproducible discomfort to palpation in the left frontal and maxillary sinus, poor dentition but no focal tenderness or gingival swelling/abscess Oropharynx clear Lungs are clear No rash, neurologically intact - Medical Decision Making 12/17/18 09:25 53-year-old female with 2 months of intermittent left sinus discomfort, likely inflammatory and ALLERGIC, less likely bacterial infection. No evidence for neuro etiology, possible dental etiology. Trial of [place] Would hold antibiotics for now Recommend dental workup/follow-up Will refill her hypertension meds because she has discontinued care with her PCP and ran out 2 days ago, referral to [facility] clinic.
== END 2018-12-17 09:47 | disposition home or self-care (01) ==
LOC: JER 07:44
DX: J01.00 Acute maxillary sinusitis, unspecified (principal); I10 Essential (primary) hypertension; M54.5 Low back pain; G89.29 Other chronic pain; K21.9 Gastro-esophageal reflux disease without esophagitis
CPT/HCPCS: 99281-25

== ENCOUNTER 2019-01-07 08:45 | Emergency (ER) | payer OTHER ==
[2019-01-07 09:02] VITALS: BP 119/76; PULSE 92; TEMP 98; BMI 36.4
[2019-01-07] MEDS ORDERED: diazePAM 5 MG TABLET PO ONE (09:26)
[2019-01-07] MEDS ORDERED: KETOROLAC TROMETHAMINE 60 MG/2 ML VIAL IM ONE (09:26)
[2019-01-07] MEDS ORDERED: LIDOCAINE 5% TOPICAL PATCH TP ONE (09:26)
[2019-01-07] MEDS ORDERED: KETOROLAC TROMETHAMINE 60 MG/2 ML VIAL ONE (09:29)
[2019-01-07] MEDS ORDERED: LIDOCAINE 5% TOPICAL PATCH ONE (09:29)
[2019-01-07] MEDS ORDERED: diazePAM 5 MG TABLET ONE (09:30)
--- NOTE | 2019-01-07 10:10 | PDOC ---
History of Present Illness - General Chief Complaint: Back Pain Stated Complaint: LOWER BACK PAIN Time Seen by Provider: 01/07/19 08:59 History Source: Patient Exam Limitations: No Limitations Past History - Past Medical History Allergies/Adverse Reactions: Allergies Allergy/AdvReac Type Severity Reaction Status Date / Time banana [Banana] Allergy Intermediate Hives Verified 12/17/18 08:07 No Known Drug Allergies Allergy Verified 12/17/18 08:07 raspberry AdvReac Severe Hives Verified 12/17/18 08:07 mushroom AdvReac Intermediate Hives Uncoded 12/17/18 08:07 Home Medications: Ambulatory Orders Aspirin [Aspirin EC] 81 mg PO DAILY 04/29/18 Enalapril Maleate [Vasotec] 20 mg PO DAILY #14 tablet 12/17/18 Omeprazole 20 mg PO DAILY 12/17/18 Topiramate [Topamax -] mg PO ASDIR 12/17/18 Diazepam [Valium] 5 mg PO Q8H PRN #15 tablet MDD 3 01/07/19 Lidocaine 5% Patch [Lidoderm -] 1 patch TP DAILY #30 patch 01/07/19 Asthma: Yes COPD: No GI Disorders: Yes (GERD) Disorders: No HTN: Yes Psychiatric Problems: Yes (ANXIETY) Thyroid Disease: No - Surgical History Abdominal Surgery: Yes - Immunization History Immunization Up to Date: Yes - Suicide/Smoking/Psychosocial Hx Smoking Status: Yes Smoking History: Current every day smoker Have you smoked in the past 12 months: Yes Number of Cigarettes Smoked Daily: 6 Information on smoking cessation initiated: No 'Breaking Loose' booklet given: 01/05/18 Hx Alcohol Use: No Drug/Substance Use Hx: No Substance Use Type: None *Physical Exam - Vital Signs Last Vital Signs Temp Pulse Resp BP Pulse Ox 98.0 F 92 H 16 119/76 100 01/07/19 08:59 01/07/19 08:59 01/07/19 08:59 01/07/19 08:59 01/07/19 08:59 - Physical Exam General Appearance: No: Apparent Distress Respiratory/Chest: positive: Lungs Clear, Normal Breath Sounds. negative: Respiratory Distress Cardiovascular: positive: Regular Rhythm, Regular Rate, S1, S2. negative: Murmur Gastrointestinal/Abdominal: positive: Normal Bowel Sounds, Soft. negative: Tender, Distended, Guarding, Rebound Musculoskeletal: positive: Muscle Spasm, Other (+pain along L lumbar paraspinal region). 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, Fully Oriented, Alert, Normal Mood/ Affect, Motor Strength 02/07 ED Treatment Course - Medications Given in the ED: ED Medications Discontinued Medications Generic Name Dose Route Start Last Admin Trade Name Louisa PRN Reason Stop Dose Admin Diazepam 5 mg 01/07/19 09:26 01/07/19 09:36 Valium - PO 01/07/19 09:27 5 mg ONCE ONE Administration Ketorolac Tromethamine 60 mg 01/07/19 09:26 01/07/19 09:36 Toradol Injection - IM 01/07/19 09:27 60 mg ONCE ONE Administration Lidocaine 1 patch 01/07/19 09:26 01/07/19 09:36 Lidoderm Patch - TP 01/07/19 09:27 1 patch ONCE ONE Administration Medical Decision Making - Medical Decision Making 53 y/o F hx of HTN, GERD, asthma presents with nonradiating L sided lower back pain x 2 days. States she pulled her back while trying to pull a kid off the street. Has hx of prior lumbar herniated disc for which she was recommended surgery, but does not want to go through that. Had tried Tylenol and Motrin at home without much help. Also had some Flexeril which did not help. Patient has not seen pain management doctor in 2 months as her back was not bothering much. Denies fever, sob, cp, abd pain, n/v, urinary complaints, numbness/tingling/ weakness of extremities, numbness around groin, saddle/groin paresthesia. Istop: Patient Name: Lashell Camara Date: 1965 Address: [address] [place] [address] Sex: Female Rx Written Rx Dispensed Drug Quantity Days Supply Prescriber Name 11/18/2018 11/21/2018 tramadol hcl 50 mg tablet 7 7 Patricio Roblero MD 11/13/2018 11/15/2018 tramadol hcl 50 mg tablet 7 7 Patricio Roblero MD 04/02/2018 04/04/2018 tramadol hcl 50 mg tablet 30 30 Jose Alaniz MD 03/28/2018 03/28/2018 tramadol hcl 50 mg tablet 6 2 [place], Cris L [employer] Likely back strain Given Toradol, Valium, lido patch and reassessed and feeling better 01/07/19 10:05 *DC/Admit/Observation/Transfer Diagnosis at time of Disposition: Low back strain Qualifiers: Encounter type: initial encounter Qualified Code(s): S39.012A - Strain of muscle, fascia and tendon of lower back, initial encounter - Discharge Dispostion Disposition: HOME Condition at time of disposition: Improved Decision to Admit order: No - Prescriptions Prescriptions: Diazepam [Valium] 5 mg PO Q8H PRN #15 tablet MDD 3 PRN Reason: Muscle Spasms Lidocaine 5% Patch [Lidoderm -] 1 patch TP DAILY #30 patch - Referrals Referrals: Jose Alaniz [Primary Care Provider] - 2 Days - Patient Instructions Printed Discharge Instructions: DI for Back Strain or Sprain Additional Instructions: Thank you for choosing [facility]. It was a pleasure taking care of you. You may take Motrin 600-800 mg every 6-8 hours by mouth as needed for mild to moderate pain. Take Motrin with food. Take Valium as needed for muscle spasms. This medication can also make you drowsy so please be cautious with driving or performing heavy physical work. Apply lidocaine patch to help with your pain - patch is applied every 12 hours Follow-up with your doctor for further evaluation Return to the Emergency Department if your symptoms worsen or persist, you have fever, shortness of breath, chest pain, severe abdominal pain, vomiting, weakness of extremities, unable to control bowel or bladder movements or other concerning symptoms. - Post Discharge Activity
[2019-01-07] MEDS ORDERED: LIDOCAINE PATCH REMOVAL MC SCH (22:00)
== END 2019-01-07 10:20 | disposition home or self-care (01) ==
LOC: JERFT 08:45
PROC: 3E0233Z Introduction of Anti-inflammatory into Muscle, Percutaneous Approach (ICD-10-PCS; principal; 2019-01-07)
DX: S39.012A Strain of muscle, fascia and tendon of lower back, initial encounter (principal); X50.9XXA Other and unspecified overexertion or strenuous movements or postures, initial encounter; Y93.89 Activity, other specified; Y92.414 Local residential or business street as the place of occurrence of the external cause; Y99.8 Other external cause status; I10 Essential (primary) hypertension; J45.909 Unspecified asthma, uncomplicated; K21.9 Gastro-esophageal reflux disease without esophagitis; D41.9 Neoplasm of uncertain behavior of unspecified urinary organ; F17.210 Nicotine dependence, cigarettes, uncomplicated
CPT/HCPCS: 99281-25

== ENCOUNTER 2019-05-24 13:22 | Emergency (ER) | payer OTHER ==
[2019-05-24] MEDS ORDERED: SODIUM CHLORIDE 1,000 ML IV STA (13:36)
[2019-05-24] MEDS ORDERED: METOCLOPRAMIDE HCL INJECTION 10 MG/2 ML VIAL IVPUSH ONE (13:36)
[2019-05-24] MEDS ORDERED: KETOROLAC TROMETHAMINE 30 MG/1 ML VIAL IVPUSH ONE (13:36)
--- NOTE | 2019-05-24 13:36 | PDOC ---
Rapid Medical Evaluation Time Seen by Provider: 05/24/19 13:32 Medical Evaluation: Allergies Allergy/AdvReac Type Severity Reaction Status Date / Time banana [Banana] Allergy Intermediate Hives Verified 12/17/18 08:07 No Known Drug Allergies Allergy Verified 12/17/18 08:07 raspberry AdvReac Severe Hives Verified 12/17/18 08:07 mushroom AdvReac Intermediate Hives Uncoded 12/17/18 08:07 05/24/19 13:32 CC: Right sided MOSQUEDA x4 days. H/o cluster headaches- pain is different. PE: [place](-) Orders: IV, reglan, benadryl, toradol, NS, CTH Patient will proceed to ED for continued evaluation. 05/24/19 13:33 Discharge Disposition - Diagnosis Head ache - Referrals - Patient Instructions - Post Discharge Activity
[2019-05-24 13:40] VITALS: BP 145/89; PULSE 99; TEMP 98.2; BMI 33.5
[2019-05-24] MEDS ORDERED: METOCLOPRAMIDE HCL INJECTION 10 MG/2 ML VIAL ONE (14:19)
--- NOTE | 2019-05-24 16:04 | PDOC ---
History of Present Illness - General Chief Complaint: Headache Stated Complaint: HEADACHE/ RT EAR PAIN/ RT EYE PAIN Time Seen by Provider: 05/24/19 13:32 History Source: Patient Exam Limitations: No Limitations - History of Present Illness Initial Comments: 05/24/19 15:08 53-year-old female presents to ED with complaints of right sided throbbing pressure for the past few days unrelieved with Motrin and Tylenol. Patient states has similar headaches but never to this extent and duration. Patient denies visual changes, vomiting, change in hearing but does complain of right ear pain which she describes as a sharp intermittent pain worsened with lying down. Patient denies any neck pain, fever, chills recent travel, recent head injury. Timing/Duration: reports: other Severity: Yes: moderate Associated Symptoms: reports: other Past History - Travel Traveled outside of the country in the last 30 days: No Close contact w/someone who was outside of country & ill: No - Past Medical History Allergies/Adverse Reactions: Allergies Allergy/AdvReac Type Severity Reaction Status Date / Time banana [Banana] Allergy Intermediate Hives Verified 12/17/18 08:07 No Known Drug Allergies Allergy Verified 12/17/18 08:07 raspberry AdvReac Severe Hives Verified 12/17/18 08:07 mushroom AdvReac Intermediate Hives Uncoded 12/17/18 08:07 Home Medications: Ambulatory Orders Aspirin [Aspirin EC] 81 mg PO DAILY 04/29/18 Enalapril Maleate [Vasotec] 20 mg PO DAILY #14 tablet 12/17/18 Omeprazole 20 mg PO DAILY 12/17/18 Topiramate [Topamax -] mg PO ASDIR 12/17/18 Diazepam [Valium] 5 mg PO Q8H PRN #15 tablet MDD 3 01/07/19 Lidocaine 5% Patch [Lidoderm -] 1 patch TP DAILY #30 patch 01/07/19 Asthma: Yes COPD: No GI Disorders: Yes (GERD) Disorders: No HTN: Yes Psychiatric Problems: Yes (ANXIETY) Thyroid Disease: No - Surgical History Abdominal Surgery: Yes - Immunization History Immunization Up to Date: Yes - Suicide/Smoking/Psychosocial Hx Smoking Status: Yes Smoking History: Current some day smoker Have you smoked in the past 12 months: Yes Number of Cigarettes Smoked Daily: 15 Information on smoking cessation initiated: Yes 'Breaking Loose' booklet given: 01/05/18 Hx Alcohol Use: No Drug/Substance Use Hx: No Substance Use Type: None Patient Lives Alone: No Lives with/in: spouse/SO Neuro Specific PMHX - Complaint Specific PMHX Migraine: Yes Review of Systems - Review of Systems Able to Perform ROS?: Yes Constitutional: No: Symptoms Reported HEENTM: No: Symptoms Reported Respiratory: No: Symptoms reported Cardiac (ROS): No: Symptoms Reported ABD/GI: No: Symptoms Reported : No: Symptoms Reported Musculoskeletal: No: Symptoms Reported Integumentary: No: Symptoms Reported Neurological: Yes: Headache. No: Other Endocrine: No: Symptoms Reported Hematologic/Lymphatic: No: Symptoms Reported *Physical Exam - Vital Signs Last Vital Signs Temp Pulse Resp BP Pulse Ox 98.2 F 99 H 20 145/89 98 05/24/19 13:36 05/24/19 13:36 05/24/19 13:36 05/24/19 13:36 05/24/19 13:36 - Physical Exam General Appearance: Yes: Nourished, Appropriately Dressed. No: Apparent Distress HEENT: positive: EOMI, TMs Normal, Pharynx Normal. negative: Pale Conjunctivae Neck: positive: Supple Respiratory/Chest: positive: Lungs Clear, Normal Breath Sounds. negative: Respiratory Distress, Accessory Muscle Use Cardiovascular: positive: Regular Rhythm, Regular Rate. negative: Murmur Gastrointestinal/Abdominal: positive: Soft. negative: Tenderness Integumentary: positive: Normal Color, Warm, Moist Neurologic: positive: Motor Strength 5/5 (ambulatory) ED Treatment Course - Medications Given in the ED: ED Medications Discontinued Medications Generic Name Dose Route Start Last Admin Trade Name Quintonq PRN Reason Stop Dose Admin Diphenhydramine HCl 25 mg 05/24/19 13:36 05/24/19 15:11 Benadryl Injection - IVPUSH 05/24/19 13:37 25 mg ONCE ONE Administration Sodium Chloride 1,000 mls @ 1,000 mls/hr 05/24/19 13:36 05/24/19 15:11 Normal Saline - IV 05/24/19 14:35 1,000 mls/hr ASDIR STA Administration Ketorolac Tromethamine 30 mg 05/24/19 13:36 05/24/19 15:11 Toradol Injection - IVPUSH 05/24/19 13:37 30 mg ONCE ONE Administration Metoclopramide HCl 10 mg 05/24/19 13:36 05/24/19 15:11 Reglan Injection - IVPUSH 05/24/19 13:37 10 mg ONCE ONE Administration Medical Decision Making - Medical Decision Making 05/24/19 15:07 CC: pt with hx of Cluster headaches now complaining of no relief with Motrin Tylenol which normally relieves her headache after a few days but states symptoms have been present for the past 4 days. Patient also complaining of right ear pain which is not common for her Exam. Patient with normal vital signs noted no focal deficits normal ENT exam patient ordered for medication IV fluids and head CT from [facility]. 05/24/19 16:[address] negative for acute pathology. Patient states feeling much better and requesting to go home. Patient is followed by Dr. reece neurologist and recommended changing to Motrin and Tylenol rapid release for headache *DC/Admit/Observation/Transfer Diagnosis at time of Disposition: Head ache - Discharge Dispostion Disposition: HOME Condition at time of disposition: Improved - Referrals Referrals: Jose Alaniz [Primary Care Provider] - - Patient Instructions Printed Discharge Instructions: DI for Cluster Headache Additional Instructions: Please drink plenty of fluids and avoid triggers of your cluster headaches. I recommend Motrin gelcaps and Tylenol rapid release for pain control. Follow-up with your neurologist as needed - Post Discharge Activity
== END 2019-05-24 16:24 | disposition home or self-care (01) ==
LOC: JER 13:22
PROC: 3E0333Z Introduction of Anti-inflammatory into Peripheral Vein, Percutaneous Approach (ICD-10-PCS; principal; 2019-05-24)
PROC: 3E0337Z Introduction of Electrolytic and Water Balance Substance into Peripheral Vein, Percutaneous Approach (ICD-10-PCS; 2019-05-24)
PROC: 3E033GC Introduction of Other Therapeutic Substance into Peripheral Vein, Percutaneous Approach (ICD-10-PCS; 2019-05-24)
DX: R51 Headache (principal); I10 Essential (primary) hypertension; F17.210 Nicotine dependence, cigarettes, uncomplicated; F41.9 Anxiety disorder, unspecified; K21.9 Gastro-esophageal reflux disease without esophagitis
CPT/HCPCS: 70450-TC; 96361; 96374; 96375; 99282-25; J7030

== ENCOUNTER 2019-07-15 07:33 | Emergency (ER) | payer OTHER ==
[2019-07-15 07:54] VITALS: BP 134/84; TEMP 98.5; BMI 34.4
[2019-07-15] MEDS ORDERED: ALBUTEROL SO4 2.5/IPRATROPIUM 0.5 INH SOL 3 ML VIAL.NEB. NEB ONE ×2 (08:21→08:34)
--- NOTE | 2019-07-15 08:21 | PDOC ---
History of Present Illness - General History Source: Patient Exam Limitations: Clinical Condition - History of Present Illness Initial Comments: 07/15/19 08:17 Patient with history of hypertension, half pack a day cigarette smoker presented with complaint of 2 weeks history of persistent cough with intermittent yellow sputum, nasal congestion and wheezing. Patient reported history of pneumonia in the past. Patient report receiving shingles vaccine 5 days ago but has been coughing prior since the vaccine. Denies fever, chills, nausea, vomiting, dizziness, chest pain or shortness of breath. Denies sick contacts or recent travel Is this a multiple visit Asthma Patient?: No Timing/Duration: other (2 weeks) <Ochoa Mendez - Last Filed: 07/15/19 09:20> <Doyle Bose - Last Filed: 07/15/19 14:33> - General Chief Complaint: Cold Symptoms Stated Complaint: COUGH Time Seen by Provider: 07/15/19 08:00 Past History - Past Medical History Asthma: Yes COPD: No GI Disorders: Yes (GERD) Disorders: No HTN: Yes Psychiatric Problems: Yes (ANXIETY) Thyroid Disease: No - Surgical History Abdominal Surgery: Yes - Immunization History Immunization Up to Date: Yes - Psycho Social/Smoking Cessation Hx Smoking Status: Yes Smoking History: Current every day smoker Have you smoked in the past 12 months: Yes Number of Cigarettes Smoked Daily: 10 Information on smoking cessation initiated: No 'Breaking Loose' booklet given: 01/05/18 Hx Alcohol Use: No Drug/Substance Use Hx: No Substance Use Type: None <Ochoa Mendez - Last Filed: 07/15/19 09:20> <Doyle Bose - Last Filed: 07/15/19 14:33> - Past Medical History Allergies/Adverse Reactions: Allergies Allergy/AdvReac Type Severity Reaction Status Date / Time banana [Banana] Allergy Intermediate Hives Verified 07/15/19 07:39 No Known Drug Allergies Allergy Verified 07/15/19 07:39 raspberry AdvReac Severe Hives Verified 07/15/19 07:39 mushroom AdvReac Intermediate Hives Uncoded 07/15/19 07:39 Home Medications: Ambulatory Orders Aspirin [Aspirin EC] 81 mg PO DAILY 04/29/18 Enalapril Maleate [Vasotec] 20 mg PO DAILY #14 tablet 12/17/18 Omeprazole 20 mg PO DAILY 12/17/18 Topiramate [Topamax -] mg PO ASDIR 12/17/18 Diazepam [Valium] 5 mg PO Q8H PRN #15 tablet MDD 3 01/07/19 Lidocaine 5% Patch [Lidoderm -] 1 patch TP DAILY #30 patch 01/07/19 Benzonatate [Tessalon Pearls -] 100 mg PO Q8H PRN #21 capsule 07/15/19 Ipratropium [place] 2 spray NS BID PRN #1 spray 07/15/19 Montelukast Na [Singulair -] 10 mg PO HS #30 tablet 07/15/19 Prednisone [Deltasone] 20 mg PO BID 5 Days #10 tablet 07/15/19 Review of Systems - Review of Systems Able to Perform ROS?: Yes Is the patient limited Polish proficient: No Constitutional: No: Chills, Fever, Weakness HEENTM: Yes: Symptoms Reported, See HPI, Nose Congestion. No: Eye Pain, Blurred Vision, Tearing, Recent change in vision, Double Vision, Cataracts, Ear Pain, Ocular Prothesis, Ear Discharge, Nose Pain, Tinnitus, Nose Bleeding, Hearing Loss, Throat Pain, Throat Swelling, Mouth Pain, Dental Problems, Difficulty Swallowing, Mouth Swelling, Other Respiratory: Yes: Symptoms reported, See HPI, Cough, Wheezing. No: Orthopnea, Shortness of Breath, SOB with Exertion, SOB at Rest, Stridor, Productive cough, Hemoptysis, Other Cardiac (ROS): No: Symptoms Reported, See HPI, Chest Pain, Edema, Irregular Heart Rate, Lightheadedness, Palpitations, Syncope, Chest Tightness, Other ABD/GI: No: Nausea, Vomiting : No: Symptoms Reported Musculoskeletal: No: Symptoms Reported All Other Systems: Reviewed and Negative <Ochoa Mendez - Last Filed: 07/15/19 09:20> *Physical Exam - Vital Signs Last Vital Signs Temp Pulse Resp BP Pulse Ox 98.5 F 98 H 17 134/84 99 07/15/19 07:39 07/15/19 07:39 07/15/19 07:39 07/15/19 07:39 07/15/19 07:39 - Physical Exam Comments: 07/15/19 08:20 GENERAL: Well developed, well nourished. Awake and alert. No acute distress. HEENT: Bilateral nasal congestion. Normocephalic, atraumatic. PERRLA, EOMI. No conjunctival pallor. Sclera are non-icteric. Moist mucous membranes. Oropharynx is clear. NECK: Supple. Full ROM. CARDIOVASCULAR: Regular rate and rhythm. No murmurs, rubs, or gallops. Distal pulses are 2+ and symmetric. PULMONARY: No evidence of respiratory distress. Mild expiratory wheeze in left lung lang. Right lung lang clear. No rales or rhonchi. ABDOMINAL: Soft. Non-tender. Non-distended. No rebound or guarding. No organomegaly. Normoactive bowel sounds. MUSCULOSKELETAL Normal range of motion at all joints. SKIN: Warm and dry. Normal capillary refill. No rashes. NEUROLOGICAL: Alert, awake, appropriate. Gait is normal without ataxia. PSYCHIATRIC: Cooperative. Good eye contact. Appropriate mood General Appearance: Yes: Nourished, Appropriately Dressed. No: Apparent Distress <Ochoa Mendez - Last Filed: 07/15/19 09:20> - Vital Signs Last Vital Signs Temp Pulse Resp BP Pulse Ox 98.5 F 88 16 134/84 99 07/15/19 07:39 07/15/19 09:17 07/15/19 09:17 07/15/19 07:39 07/15/19 07:39 <Doyle Bose - Last Filed: 07/15/19 14:33> ED Treatment Course - RADIOLOGY Radiology Studies Ordered: Category Date Time Status CHEST PA & LAT [RAD] Stat Radiology 07/15/19 08:14 Ordered <Ochoa Mendez - Last Filed: 07/15/19 09:20> - Medications Given in the ED: ED Medications Discontinued Medications Generic Name Dose Route Start Last Admin Trade Name Freq PRN Reason Stop Dose Admin Albuterol/Ipratropium 2 amp 07/15/19 08:21 07/15/19 08:41 Duoneb - NEB 07/15/19 08:22 2 amp ONCE ONE Administration <Doyle Bose - Last Filed: 07/15/19 14:33> Medical Decision Making - Medical Decision Making 07/15/19 08:19 Patient with history of hypertension, half pack a day cigarette smoker presented with complaint of 2 weeks history of persistent cough with intermittent yellow sputum, nasal congestion and wheezing. Patient reported history of pneumonia in the past. Patient report receiving shingles vaccine 5 days ago but has been coughing prior since the vaccine. Denies fever, chills, nausea, vomiting, dizziness, chest pain or shortness of breath. Denies sick contacts or recent travel Clinical exam significant for mild inspiratory wheeze in left upper and lower lung lang with right lung lang clear. Patient afebrile. Bilateral nasal congestion on exam. Given patient history of smoking with persistent cough for 2 weeks, checks x- ray ordered to rule out pneumonia. DuoNeb with albuterol and Atrovent ordered for wheezing. Treat based on chest results 07/15/19 09:20 Checks x-ray shows no acute infiltrate or pathology. Patient with improvement wheezes post DuoNeb treatment. Patient stable for discharge for outpatient treatment for viral URI with Tessalon Perles and prednisone for cough and Atrovent nasal spray for nasal congestion with PCP follow-up. <Ochoa Mendez - Last Filed: 07/15/19 09:20> Discharge - Discharge Information Problems reviewed: Yes - Admission No <Ochoa Mendez - Last Filed: 07/15/19 09:20> <Doyle Bose - Last Filed: 07/15/19 14:33> - Discharge Information Clinical Impression/Diagnosis: Cough Upper respiratory infection Qualifiers: URI type: unspecified URI Qualified Code(s): J06.9 - Acute upper respiratory infection, unspecified Condition: Stable Disposition: HOME - Additional Discharge Information Prescriptions: Benzonatate [Tessalon Pearls -] 100 mg PO Q8H PRN #21 capsule PRN Reason: Cough Ipratropium [place] 2 spray NS BID PRN #1 spray PRN Reason: nasal congestion Montelukast Na [Singulair -] 10 mg PO HS #30 tablet Prednisone [Deltasone] 20 mg PO BID 5 Days #10 tablet - Follow up/Referral Referrals: Jose Alaniz [Primary Care Provider] - - Patient Discharge Instructions Patient Printed Discharge Instructions: DI for Viral Upper Respiratory Infection -- Adult Additional Instructions: A chest x-ray shows no acute infiltrate or pneumonia. Your symptoms likely caused by upper respiratory infection. Take prescribed medication as prescribed. Increase fluid intake. Follow-up with PCP as needed - Post Discharge Activity
[2019-07-15 09:18] VITALS: PULSE 88
== END 2019-07-15 09:15 | disposition home or self-care (01) ==
LOC: JER 07:33
PROC: 3E0F7GC Introduction of Other Therapeutic Substance into Respiratory Tract, Via Natural or Artificial Opening (ICD-10-PCS; principal; 2019-07-15)
PROC: 3E0F7GC Introduction of Other Therapeutic Substance into Respiratory Tract, Via Natural or Artificial Opening (ICD-10-PCS; 2019-07-15)
DX: J06.9 Acute upper respiratory infection, unspecified (principal); R05 Cough; I10 Essential (primary) hypertension; F17.210 Nicotine dependence, cigarettes, uncomplicated; J45.909 Unspecified asthma, uncomplicated; K21.9 Gastro-esophageal reflux disease without esophagitis; F41.9 Anxiety disorder, unspecified
CPT/HCPCS: 71046-TC-FY; 99281-25

== ENCOUNTER 2019-07-31 13:27 | Emergency (ER) | payer OTHER ==
[2019-07-31 13:42] VITALS: BP 124/75; PULSE 104; TEMP 97.8; BMI 32.9
[2019-07-31] MEDS ORDERED: NAPROXEN 500 MG TABLET (FP) PO ONE (14:09)
[2019-07-31] MEDS ORDERED: NAPROXEN 500 MG TABLET (FP) ONE (14:11)
--- NOTE | 2019-07-31 14:12 | PDOC ---
History of Present Illness - General Chief Complaint: Pain, Acute Stated Complaint: RT KNEE PAIN Time Seen by Provider: 07/31/19 13:40 History Source: Patient Exam Limitations: No Limitations - History of Present Illness Initial Comments: 07/31/19 14:12 HISTORY OF PRESENT ILLNESS: Is a 54-year-old woman who presented emergency department for evaluation of right knee pain status post twisting injury while walking on uneven uli. Patient reports she stepped on some commercial tiles in her room holding her lose her balance and twisted her right knee falling to the ground. The event happened on 07/29 and patient has been ambulatory on her leg since that time. Patient has been taking over-the- counter ibuprofen and applying ice with minimal relief of symptoms. Patient has a previously scheduled appointment for orthopedist regarding back pain next week. No recent travel or sick contacts. PAST MEDICAL HISTORY: Denies past medical history SURGICAL HISTORY: Denies ALLERGIES: No known drug allergies REVIEW OF SYSTEMS General/Constitutional: Denies fever or chills. Denies weakness, weight change. HEENT: Denies change in vision. Denies ear pain or discharge. Denies sore throat. Cardiovascular: Denies chest pain or shortness of breath. Respiratory: Denies cough, wheezing, or hemoptysis. Gastrointestinal: Denies nausea, vomiting, diarrhea or constipation. Denies rectal bleeding. Genitourinary: Denies dysuria, frequency, or change in urination. Musculoskeletal: See HPI Skin and breasts: Denies rash or easy bruising. Neurologic: Denies headache, vertigo, loss of consciousness, or loss of sensation. Psychiatric: Denies depression or anxiety. Endocrine: Denies increased thirst. Denies abnormal weight change. Hematologic/Lymphatic: Denies anemia, easy bleeding, or history of blood clots. Allergic/Immunologic: Denies hives or skin allergy. Denies latex allergy. PHYSICAL EXAM General Appearance: Well-appearing, appropriately dressed. No apparent distress , no intoxication. Respiratory/Chest: Lungs CTAB. No shortness of breath, chest tenderness, respiratory distress, accessory muscle use. No crackles, rales, rhonchi, stridor , wheezing, dullness Cardiovascular: RRR. S1, S2. No JVD, murmur, bradycardia, tachycardia. Vascular Pulses: Dorsalis-Pedis (R): 2+, Dorsalis-Pedis (L): 2+ Gastrointestinal/Abdominal: Normal bowel sounds. Abdomen soft, non-distended. No tenderness or rebound tenderness. No organomegaly, pulsatile mass, guarding, hernia, hepatomegaly, splenomegaly. Lymphatic: No adenopathy, tenderness. Musculoskeletal/Extremities: Normal inspection. FROM of all extremities, normal capillary refill. Pelvis Stable. No CVA tenderness. No tenderness to extremities, pedal edema, swelling, erythema or deformity. Neurovascularly intact. Negative Bao test. Integumentary: Appropriate color, dry, warm. 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 Fully oriented, alert. Appropriate mood/affect. Motor strength 5/5. No appreciable EOM palsy, facial droop or sensory deficit. Past History - Past Medical History Allergies/Adverse Reactions: Allergies Allergy/AdvReac Type Severity Reaction Status Date / Time banana [Banana] Allergy Intermediate Hives Verified 07/31/19 13:49 No Known Drug Allergies Allergy Verified 07/31/19 13:49 raspberry AdvReac Severe Hives Verified 07/31/19 13:49 mushroom AdvReac Intermediate Hives Uncoded 07/31/19 13:49 Home Medications: Ambulatory Orders Aspirin [Aspirin EC] 81 mg PO DAILY 04/29/18 Omeprazole 20 mg PO DAILY 12/17/18 Lidocaine 5% Patch [Lidoderm -] 1 patch TP DAILY #30 patch 01/07/19 Montelukast Na [Singulair -] 10 mg PO HS #30 tablet 07/15/19 Ipratropium [place] 2 spray NS PRN PRN 07/31/19 Asthma: Yes COPD: No GI Disorders: Yes (GERD) Disorders: No HTN: Yes Psychiatric Problems: Yes (ANXIETY) Thyroid Disease: No - Surgical History Abdominal Surgery: Yes - Immunization History Immunization Up to Date: Yes - Psycho Social/Smoking Cessation Hx Smoking Status: Yes Smoking History: Unknown if ever smoked Have you smoked in the past 12 months: Yes Number of Cigarettes Smoked Daily: 10 'Breaking Loose' booklet given: 01/05/18 Hx Alcohol Use: No Drug/Substance Use Hx: No Substance Use Type: None *Physical Exam - Vital Signs Last Vital Signs Temp Pulse Resp BP Pulse Ox 97.8 F 104 H 18 124/75 99 07/31/19 13:32 07/31/19 13:32 07/31/19 13:32 07/31/19 13:32 07/31/19 13:32 ED Treatment Course - RADIOLOGY Radiology Studies Ordered: Category Date Time Status KNEE 3 POS-RIGHT [RAD] Stat Radiology 07/31/19 13:40 Taken Medical Decision Making - Medical Decision Making 07/31/19 14:14 A/P: 54-year-old woman with right knee pain status post twisting injury 2 days ago Physical exam is unremarkable X-ray of the right knee as read by me: No acute fractures or dislocations present. Knee immobilizer Naprosyn 500 mg orally now Crutches Discharge home to follow with orthopedist as previously scheduled appointment. Discharge - Discharge Information Problems reviewed: Yes Clinical Impression/Diagnosis: Right knee pain Qualifiers: Chronicity: acute Qualified Code(s): M25.561 - Pain in right knee Condition: Stable Disposition: HOME - Admission No - Follow up/Referral Referrals: Jose Alaniz [Primary Care Provider] - Isaias Gould MD [Staff Physician] - - Patient Discharge Instructions Additional Instructions: Take Tylenol and Naprosyn as needed for pain. Follow manufacturers instructions for appropriate dosage. Try not to walk or bear weight on your right knee as much as possible for the next 3 days. Apply ice for 20 minutes and removed for at least 20 minutes before reapplying the ice. Keep immobilizer on your right knee as much as possible to provide stability. Whenever possible keep your foot elevated to decrease swelling. You've been given the number for an orthopedist. If symptoms do not resolve within the next 7 days call the orthopedist for further evaluation. Return to emergency department for discoloration of the foot, numbness or tingling to the foot, worsening pain, or any other concerns. Thank you very much for choosing us to provide your emergent healthcare needs. - Post Discharge Activity
== END 2019-07-31 14:25 | disposition home or self-care (01) ==
LOC: JERFT 13:27
PROC: 2W3QXYZ Immobilization of Right Lower Leg using Other Device (ICD-10-PCS; principal; 2019-07-31)
DX: M25.561 Pain in right knee (principal); X50.1XXA Overexertion from prolonged static or awkward postures, initial encounter; W18.39XA Other fall on same level, initial encounter; Y93.89 Activity, other specified; Y92.038 Other place in apartment as the place of occurrence of the external cause; Y99.8 Other external cause status; I10 Essential (primary) hypertension; K21.9 Gastro-esophageal reflux disease without esophagitis; J45.909 Unspecified asthma, uncomplicated; F41.9 Anxiety disorder, unspecified; Z79.82 Long term (current) use of aspirin; Z91.018 Allergy to other foods
CPT/HCPCS: 29530; 73562-TC-RT-FY; 99282-25

== ENCOUNTER 2019-08-12 05:17 | Emergency (ER) | payer OTHER ==
[2019-08-12 06:09] VITALS: BMI 34.9
--- NOTE | 2019-08-12 06:24 | PDOC ---
Attending Attestation - Resident Resident Name: Aubrey Gayle - ED Attending Attestation I have performed the following: I have examined & evaluated the patient, The case was reviewed & discussed with the resident, I agree w/resident's findings & plan - HPI HPI: 08/12/19 06:46 see resident hpi - Physicial Exam PE: 08/12/19 06:47 agree with resident exam - Medical Decision Making 08/12/19 06:47 54-year-old female status post fall with lower extremity pain Plan for x-rays, signed out to dayshift pending results
--- NOTE | 2019-08-12 06:44 | PDOC ---
History of Present Illness - General Chief Complaint: Pain, Acute Stated Complaint: FALL Time Seen by Provider: 08/12/19 06:23 - History of Present Illness Initial Comments: Ms. Camara is a 54 y/o female with PMH significant for HTN and back pain, presenting today after mechanical fall at her home. Reports that she tripped and landed on her right side. Currently reports right ankle pain and left foot pain. Denies head trauma, denies nausea, denies vomiting. Denies headache, dizziness, changes in vision/hearing. Denies heart palpitations or shortness of breath. Past History - Past Medical History Allergies/Adverse Reactions: Allergies Allergy/AdvReac Type Severity Reaction Status Date / Time banana [Banana] Allergy Intermediate Hives Verified 08/12/19 05:57 No Known Drug Allergies Allergy Verified 08/12/19 05:57 raspberry AdvReac Severe Hives Verified 08/12/19 05:57 mushroom AdvReac Intermediate Hives Uncoded 08/12/19 05:57 Home Medications: Ambulatory Orders Aspirin [Aspirin EC] 81 mg PO DAILY 04/29/18 Omeprazole 20 mg PO DAILY 12/17/18 Lidocaine 5% Patch [Lidoderm -] 1 patch TP DAILY #30 patch 01/07/19 Montelukast Na [Singulair -] 10 mg PO HS #30 tablet 07/15/19 Ipratropium [place] 2 spray NS PRN PRN 07/31/19 Asthma: Yes COPD: No GI Disorders: Yes (GERD) Disorders: No HTN: Yes Psychiatric Problems: Yes (ANXIETY) Thyroid Disease: No - Surgical History Abdominal Surgery: Yes - Immunization History Immunization Up to Date: Yes - Psycho Social/Smoking Cessation Hx Smoking Status: Yes Smoking History: Never smoked Have you smoked in the past 12 months: Yes Number of Cigarettes Smoked Daily: 10 'Breaking Loose' booklet given: 01/05/18 Hx Alcohol Use: No Drug/Substance Use Hx: No Substance Use Type: None Review of Systems - Review of Systems Comments:: GENERAL/CONSTITUTIONAL: No fever or chills. No weakness._ HEAD, EYES, EARS, NOSE AND THROAT: No change in vision. No change in hearing. No sore throat._ CARDIOVASCULAR: No chest pain or shortness of breath_ RESPIRATORY: Denies cough, hemoptysis_ GASTROINTESTINAL: No nausea, vomiting, diarrhea or constipation._ GENITOURINARY: No dysuria, frequency, or change in urination._ MUSCULOSKELETAL: Reports right ankle pain. Reports left foot pain. SKIN: No rash_ NEUROLOGIC: No headache, vertigo, loss of consciousness, or change in strength/ sensation._ ENDOCRINE: No increased thirst. No abnormal weight change_ HEMATOLOGIC/LYMPHATIC: No anemia, easy bleeding, or history of blood clots._ ALLERGIC/IMMUNOLOGIC: No hives or skin allergy._ *Physical Exam - Vital Signs Last Vital Signs Temp Pulse Resp BP Pulse Ox 98.4 F 99 H 17 134/80 98 08/12/19 05:20 08/12/19 05:20 08/12/19 05:20 08/12/19 05:20 08/12/19 05:20 - Physical Exam Comments: GENERAL: Awake, alert, and oriented to person/place/time, in no acute distress_ HEAD: No signs of trauma, normocephalic, atraumatic _ EYES: PERRLA, EOMI, sclera anicteric, conjunctiva clear_ ENT: Hearing grossly normal, nares patent, oropharynx clear without exudates. No uvular deviation. Moist mucosa_ NECK: Normal ROM, supple, no lymphadenopathy, JVD, or masses_ LUNGS: No distress, speaks in full sentences, clear to auscultation bilaterally _ HEART: Regular rate and rhythm, normal S1 and S2, no murmurs appreciated, peripheral pulses normal and equal bilaterally._ ABDOMEN: Soft, nontender, normoactive bowel sounds. No guarding, no rebound. No masses_ EXTREMITIES: R/LUE: Normal inspection, Normal range of motion. No clubbing or cyanosis_ RLE: Inspection: No erythema or ecchymosis. TTP right medial and lateral ankle. No obvious abnormalities, no open wounds. Compartments soft and compressible, pain within proportion, no pain to passive stretch Knee in immobilizer Sensation: SPLT DP, SP, Tib, Braden, Saph Motor: 5/5 EHL, 5/5 FHL, 5/5 TA, 5/5GS, 5/5 Quad, 5/5 Ham Vascular: 2+ DP/PT, all toes BCR <2 sec LLE: Inspection: No erythema or ecchymosis. TTP left great toe, no obvious abnormalities, no open wounds. Compartments soft and compressible, pain within proportion, no pain to passive stretch Knee stable to anterior/posterior drawer and varus/valgus stress Sensation: SPLT DP, SP, Tib, Braden, Saph Motor: 5/5 EHL, 5/5 FHL, 5/5 TA, 5/5GS, 5/5 Quad, 5/5 Ham Vascular: 2+ DP/PT, all toes BCR <2 sec NEUROLOGICAL: Cranial nerves II through XII grossly intact. Normal speech, no focal sensorimotor deficits _ SKIN: Warm, Dry, normal turgor, no rashes or lesions noted_ ED Treatment Course - RADIOLOGY Radiology Studies Ordered: Category Date Time Status ANKLE & FOOT-LEFT* [RAD] Stat Radiology 08/12/19 06:35 Ordered ANKLE & FOOT-RIGHT* [RAD] Stat Radiology 08/12/19 06:35 Ordered Medical Decision Making - Medical Decision Making 54F presenting s/p mechanical fall reporting right ankle pain and left foot pain -XR right ankle/foot -XR left ankle/foot -Tylenol PO 08/12/19 0700 Pt signed out to Dr. Stevens. Discharge - Discharge Information Problems reviewed: Yes Clinical Impression/Diagnosis: Bilateral ankle pain Condition: Fair Disposition: HOME - Follow up/Referral Referrals: Jose Alaniz [Primary Care Provider] - - Patient Discharge Instructions Patient Printed Discharge Instructions: DI for Ankle Pain Additional Instructions: You were seen with ankle pain. Your X rays did not show any fractures. Alternate using acetaminophen and naproxen as needed for pain. Follow up with your primary care doctor within one week. Return to the ED if you develop worsening symptoms. - Post Discharge Activity
[2019-08-12] MEDS ORDERED: ACETAMINOPHEN 500 MG TABLET (FP) PO ONE (06:45)
[2019-08-12] MEDS ORDERED: ACETAMINOPHEN 325 MG TABLET (FP) ONE (06:55)
--- NOTE | 2019-08-12 07:04 | PDOC ---
*Physical Exam - Vital Signs Last Vital Signs Temp Pulse Resp BP Pulse Ox 98.4 F 99 H 17 134/80 98 08/12/19 05:20 08/12/19 05:20 08/12/19 05:20 08/12/19 05:20 08/12/19 05:20 ED Treatment Course - Medications Given in the ED: ED Medications Discontinued Medications Generic Name Dose Route Start Last Admin Trade Name Louisa PRN Reason Stop Dose Admin Acetaminophen 975 mg 08/12/19 06:45 08/12/19 06:59 Tylenol - PO 08/12/19 06:46 975 mg ONCE ONE Administration Medical Decision Making - Medical Decision Making 08/12/19 07:[address] Gayle, will f/u X rays, dispo accordingly. 08/12/19 08:25 X rays without acute pathology, does show swelling. Will dc patient home, tell to alternate acetaminophen and naproxen as needed for pain, provide crutches, follow up with primary care doctor within one week. Discharge - Discharge Information Problems reviewed: Yes Clinical Impression/Diagnosis: Bilateral ankle pain Condition: Fair - Follow up/Referral Referrals: Jose Alaniz [Primary Care Provider] - - Patient Discharge Instructions Patient Printed Discharge Instructions: DI for Ankle Pain Additional Instructions: You were seen with ankle pain. Your X rays did not show any fractures. Alternate using acetaminophen and naproxen as needed for pain. Follow up with your primary care doctor within one week. Return to the ED if you develop worsening symptoms. - Post Discharge Activity
[2019-08-12] MEDS ORDERED: NAPROXEN 500 MG TABLET (FP) PO ONE (08:33)
[2019-08-12] MEDS ORDERED: NAPROXEN 500 MG TABLET (FP) ONE (08:41)
[2019-08-12 08:54] VITALS: BP 129/84; PULSE 85; TEMP 98.2
== END 2019-08-12 08:54 | disposition home or self-care (01) ==
LOC: JER 05:17
DX: M25.571 Pain in right ankle and joints of right foot (principal); M25.572 Pain in left ankle and joints of left foot; W18.39XA Other fall on same level, initial encounter; Y93.89 Activity, other specified; Y92.038 Other place in apartment as the place of occurrence of the external cause; I10 Essential (primary) hypertension; K21.9 Gastro-esophageal reflux disease without esophagitis; J45.909 Unspecified asthma, uncomplicated; F41.9 Anxiety disorder, unspecified; Z91.018 Allergy to other foods
CPT/HCPCS: 73610-TC-LT-FY; 73610-TC-RT-FY; 73630-TC-LT; 73630-TC-RT-FY; 99282-25

== ENCOUNTER 2019-10-11 11:38 | Emergency (ER) | payer OTHER ==
[2019-10-11 11:48] VITALS: BMI 35.5
[2019-10-11] MEDS ORDERED: FAMOTIDINE 20 MG/50 ML IVPB 20 MG/50 ML MG IVPB ONE ×2 (12:19→13:04)
[2019-10-11] MEDS ORDERED: MAG HYDROX/AL HYDROX/SIMETH 30 ML UNIT-DOSE CUP PO ONE (12:19)
[2019-10-11] MEDS ORDERED: ACETAMINOPHEN 1000 MG/100 ML VIAL (NON FORMULARY) IVPB ONE (12:20)
--- NOTE | 2019-10-11 12:28 | PDOC ---
History of Present Illness - General Chief Complaint: Chest Pain Stated Complaint: CHEST DISCOMFORT Time Seen by Provider: 10/11/19 12:01 History Source: Patient Exam Limitations: No Limitations Past History - Past Medical History Allergies/Adverse Reactions: Allergies Allergy/AdvReac Type Severity Reaction Status Date / Time banana [Banana] Allergy Intermediate Hives Verified 10/11/19 11:48 No Known Drug Allergies Allergy Verified 10/11/19 11:48 raspberry AdvReac Severe Hives Verified 10/11/19 11:48 mushroom AdvReac Intermediate Hives Uncoded 10/11/19 11:48 Home Medications: Ambulatory Orders Aspirin [Aspirin EC] 81 mg PO DAILY 04/29/18 Azilsartan Medoxomil [Edarbi] 80 mg PO DAILY 10/11/19 Pantoprazole Sodium [Protonix] 40 mg PO DAILY 10/11/19 Sucralfate Oral Suspension [Carafate *Oral Susp*] 1 gm PO QID #1 bottle Asthma: Yes COPD: No GI Disorders: Yes (GERD) Disorders: No HTN: Yes Psychiatric Problems: Yes (ANXIETY) Thyroid Disease: No Other medical history: chronic back pain - Surgical History Abdominal Surgery: Yes - Immunization History Immunization Up to Date: Yes - Psycho Social/Smoking Cessation Hx Smoking Status: Yes Smoking History: Current every day smoker Have you smoked in the past 12 months: Yes Number of Cigarettes Smoked Daily: 12 Information on smoking cessation initiated: No 'Breaking Loose' booklet given: 01/05/18 Hx Alcohol Use: No Drug/Substance Use Hx: No Substance Use Type: None *Physical Exam - Vital Signs Last Vital Signs Temp Pulse Resp BP Pulse Ox 98.0 F 94 H 16 143/83 98 10/11/19 11:45 10/11/19 11:45 10/11/19 11:45 10/11/19 11:45 10/11/19 11:45 Heart Score/ECG Review - History History: Slightly suspicious - Electrocardiogram EKG: Normal - Age Age: 45-65 - Risk Factors Risk Factors Heart Score: Yes Hx Hypertension, Yes Hx Diabetes, Yes Smoking History, Yes Positive family hx of cardiac disease Based on the list above the patient has:: >/=3 risk factors or Hx atherosclerotic disease ED Treatment Course - LABORATORY CBC & Chemistry Diagram: 10/11/19 13:00 10/11/19 13:00 - RADIOLOGY Radiology Studies Ordered: Category Date Time Status CHEST X-RAY PORTABLE* [RAD] Stat Radiology 10/11/19 12:17 Ordered Medical Decision Making - Medical Decision Making 10/11/19 12:19 54F PMH GERD HTN NIIDM c/o 4 days of more frequent substernal burning up going up to the throat that is exactly the same as her GERD sx. THese sx have been occurring since 08/2019 and she has seen Dr. Holder for it but in the past 4 days the sx are more frequent. She was prescribed pantoprazole by Dr. Holder w/ minimal relief. She tried omeprazole with more relief. Coming to the ED her thinks it needs to be checked out as she is losing sleep. Eating less bc she is afraid of sx starting up. Endorses staying up right for hours after meals. Denies changes in her diet recently. Pt states she has anxiety and experiences palpitations occasionally. Denies chest pain, sob, f/c, n/v/d/ constipation, abd pain, bloody stool, and urinary sx. +Family cardiac Hx in grandparents. +tobacco. Pt's PCP and Partition Setter are at [facility] had a nuclear stress test in 07/2019 for atypical chest pain: LVEF 75%. CONSTITUTIONAL: Denies F / C HEENT: Denies sore throat, rhinorrhea RESP: Denies SOB. Endorses smoker's cough nonproductive. CARD: Denies chest pain. Endorses occasional palpitations. GI: Endorses substernal discomfort going up to her throat that is the same as her GERD sx. Denies N / V / D, abdominal pain, bloody stool, inability to tolerate PO : Denies dysuria, hematuria, frequency SKIN: Denies rashes NEURO: Denies numbness, tingling, weakness MSK: Denies back pain GEN: NAD, comfortable. AAOx3. HEENT: NC/AT. No facial asymmetry. Normal voice. Supple neck w/ FROM. CV: S1/S2, RRR, no m/r/g LUNG: CTAB, no wheezes, crackles, rales, rhonchi. GI: Soft, ndnt, +BS, no guarding, no rebound. No masses. EXTREMITIES: No obvious deformities of all extremities. SKIN: Warm, dry PSYCH: Normal mood and affect. NEURO: Moving all extremities well. 54F PMH GERD HTN NIIDM complaining that her "GERD sx are becoming more frequent " in past 4 days. Has substernal burning going up to the throat. Exam benign. This is likely GERD; r/o ACS and acute chest pathology - cardiac w/u - CXR - EKG - GI cocktail 10/11/19 12:42 EKG HR 88 AL 156 QRS 84 QTc 442 NSR 10/11/19 14:43 labs reviewed CXR reviewed pt feeling better DC home w/ GI f/u; pt states she has set up f/u already. Discharge - Discharge Information Problems reviewed: Yes Clinical Impression/Diagnosis: Burning sensation GERD (gastroesophageal reflux disease) Qualifiers: Esophagitis presence: without esophagitis Qualified Code(s): K21.9 - Gastro- esophageal reflux disease without esophagitis Condition: Stable Disposition: HOME - Admission No - Follow up/Referral Referrals: Jose Alaniz [Primary Care Provider] - Ferny Holder MD [Staff Physician] - - Patient Discharge Instructions Patient Printed Discharge Instructions: DI for Gastroesophageal Reflux Disease (GERD) Additional Instructions: Follow up with Dr. Holder about your symptoms in the next 5 days. Follow up with your Partition Setter in the next 5 days. Follow up with your Primary Care Doctor in the next 1-3 days. Provide the attached labs to your doctors. We sent a medication to your pharmacy, please pick it up and take as prescribed. Continue the Omeprazole if that is helping with your symptoms. Continue your home medications as prescribed. Return to the Emergency Department if you experience worsening pain, change in the type of pain, shortness of breath, or anything that concerns you. - Post Discharge Activity Work/Back to School Note: Back to Work
[2019-10-11] MEDS ORDERED: ACETAMINOPHEN INJECTION 100 ML IVPB ONE (13:03)
[2019-10-11] MEDS ORDERED: MAG HYDROX/AL HYDROX/SIMETH 30 ML UNIT-DOSE CUP ONE (13:04)
[2019-10-11 13:09] LABS: BASO % 0.9 % (0-2.0); EOS % 2.8 % (0-4.5); HEMATOCRIT 39.7 % (32.4-45.2); HEMOGLOBIN 12.9 GM/dL (10.7-15.3); LYMPH % 40.7 % (8-40); MCH 26.2 pg (25.7-33.7); MCHC 32.4 g/dl (32.0-36.0); MEAN CELL VOLUME 80.8 fl (80-96); MEAN PLT VOLUME 7.9 fl (7.5-11.1); MONO % 4.9 % (3.8-10.2); NEUT % 50.7 % (42.8-82.8); PLATELET COUNT 436 K/MM3 (134-434); RBC 4.91 M/mm3 (3.60-5.2); RDW 15.9 % (11.6-15.6); WHITE BLOOD COUNT 8.4 K/mm3 (4.0-10.0)
[2019-10-11 14:15] LABS: ALBUMIN 3.8 g/dl (3.4-5.0); ALK PHOS 77 U/L (45-117); ANION GAP 5 MMOL/L (8-16); BILIRUBIN,TOTAL 0.5 mg/dL (0.2-1); BLOOD UREA NITROGEN 11.3 mg/dL (7-18); CALCIUM 9.2 mg/dL (8.5-10.1); CHLORIDE 106 mmol/L (98-107); CO2 26 mmol/L (21-32); CREATININE 0.7 mg/dL (0.55-1.3); GLUCOSE,RANDOM 146 mg/dL (74-106); POTASSIUM 4.7 mmol/L (3.5-5.1); SGOT/AST 14 U/L (15-37); SGPT/ALT 23 U/L (13-61); SODIUM 137 mmol/L (136-145); TOT PROT 7.2 g/dl (6.4-8.2)
--- NOTE | 2019-10-11 14:41 | PDOC ---
Documentation entered by Millie Alves SCRIBE, acting as scribe for Fredy Cronin MD. Fredy Cronin MD: This documentation has been prepared by the Joselyn manuel Brenda, SCRIBE, under my direction and personally reviewed by me in its entirety. I confirm that the documentation accurately reflects all work, treatment, procedures, and medical decision making performed by me. Attending Attestation - Resident Resident Name: RubioIsaias - ED Attending Attestation I have performed the following: I have examined & evaluated the patient, The case was reviewed & discussed with the resident, I agree w/resident's findings & plan, Exceptions are as noted - HPI HPI: 10/11/19 12:23 The patient is a 54 year old female with a significant past medical history of HTN and cigarette smoking who presents to the ED for 5 days of epigastric pain that radiates up to her throat and endorses a burping/burning pain in the back of nancy throat. Patient states that the pain seems to be worse at night however it is present during the entire day. worse with certain foods and the patient has been trying to stay compliant with her diet however she has been afraid of her pain, back so she is not eating much in the last 5 days. The patient has seen Dr. Campbell for evaluation of this including having an endoscopy which was unremarkable. denies any sob, hemoptysis, chin, nausea/ vomiting, diaphoresis, worseing of pain with exertion. pt had a neg stress test in the fall. Allergies: NKDA Social Hx: Cigarette smoking PCP: Dr. Smitha Alaniz - Physicial Exam PE: 10/11/19 14:40 GENERAL: The patient is awake, alert, and fully oriented, Nontoxic - in no acute distress. HEAD: Normocephalic, atraumatic. EYES: extraocular movements intact, sclera anicteric, conjunctiva clear. ENT: Normal voice, Moist mucous membranes. NECK: Normal range of motion, supple LUNGS: Breath sounds equal, clear to auscultation bilaterally. No wheezes, no rhonchi, no rales. HEART: Regular rate and rhythm, normal S1 and S2 without murmur, rub or gallop. ABDOMEN: Soft, nontender, No guarding, no rebound. No CVA tenderness EXTREMITIES: Normal range of motion, no edema. NEUROLOGICAL: No facial assymetry, Normal speech, PSYCH: Normal mood, normal affect. SKIN: Warm, Dry, normal turgor, - Medical Decision Making 10/11/19 14:41 Differential for the patient's symptoms includes ACS, GERD, I have a higher suspicion of acid reflux/GERD due to the relationship to food intake and lack of exertional complaints. Patient also had a recent negative cardiac work-up which is reassuring The patient is feeling improved after supportive care here will discharge patient to follow-up with Dr. Holder, return cautions were discussed. I discussed the physical exam findings, ancillary test results and final diagnoses with the patient. I answered all of the patient's questions. The patient was satisfied with the care received and felt comfortable with the discharge plan and treatment plan. The patient will call their primary care physician within 24 hours to arrange follow-up and will return to the Emergency Department with any new, persistent or worsening symptoms. Heart Score/ECG Review - ECG Impressions Comment:: 10/11/19 13:03 Twelve-lead EKG was performed and reviewed by me. There is normal sinus rhythm with a normal rate. rate of 88 The axis is normal. The intervals are normal. There is normal R wave progression There are no ST or T wave abnormalities. Impression: Normal twelve-lead EKG
[2019-10-11 15:48] VITALS: BP 110/68; PULSE 86; TEMP 97.8
--- NOTE | 2019-10-12 12:59 | EKG ---
Test Reason : Blood Pressure : / mmHG Vent. Rate : 088 BPM Atrial Rate : 088 BPM P-R Int : 156 ms QRS Dur : 084 ms QT Int : 366 ms P-R-T Axes : 070 085 049 degrees QTc Int : 442 ms NORMAL SINUS RHYTHM NORMAL ECG WHEN COMPARED WITH ECG OF 27-SEP-2018 09:32, NO SIGNIFICANT CHANGE WAS FOUND Confirmed by MD Golden Daniel ([id number]) on 10/12/2019 12:59:00 PM Referred By: Confirmed By:Thompson Golden MD
== END 2019-10-11 15:49 | disposition home or self-care (01) ==
LOC: JER 11:38
PROC: 3E033GC Introduction of Other Therapeutic Substance into Peripheral Vein, Percutaneous Approach (ICD-10-PCS; principal; 2019-10-11)
PROC: 3E033NZ Introduction of Analgesics, Hypnotics, Sedatives into Peripheral Vein, Percutaneous Approach (ICD-10-PCS; 2019-10-11)
DX: K21.9 Gastro-esophageal reflux disease without esophagitis (principal); I10 Essential (primary) hypertension; E11.9 Type 2 diabetes mellitus without complications; Z79.84 Long term (current) use of oral hypoglycemic drugs; F17.210 Nicotine dependence, cigarettes, uncomplicated; Z91.018 Allergy to other foods
CPT/HCPCS: 36415; 71045-TC-FY; 80053; 82550; 83735; 84100; 84484; 85025; 93005; 93010; 96365; 96375; 99283-25; J0131

== ENCOUNTER 2021-02-21 04:05 | Day surgery (SDC) | payer OTHER ==
[2021-02-20 10:19] VITALS: BMI 35.3
[2021-02-21] MEDS ORDERED: LIDOCAINE HCL/PF 2% SDV 5ML VIAL ONE (10:46)
[2021-02-21] MEDS ORDERED: PROPOFOL 20 ML ONE ×2 (10:46→11:54)
[2021-02-21] MEDS ORDERED: DEXAMETHASONE SOD PHOSPHATE 4 MG/1 ML VIAL ONE (10:46)
[2021-02-21] MEDS ORDERED: KETOROLAC TROMETHAMINE 30 MG/1 ML VIAL ONE (10:46)
[2021-02-21] MEDS ORDERED: MIDAZOLAM HCL 2 MG/2 ML SINGLE DOSE VIAL ONE ×2 (10:47→11:54)
[2021-02-21] MEDS ORDERED: SODIUM CHLORIDE 0.9% P/F 10 ML VIAL IJ ONE ×2 (11:06→11:07)
[2021-02-21] MEDS ORDERED: ONDANSETRON 4 MG/2 ML VIAL IVPUSH PRN (11:12)
[2021-02-21] MEDS ORDERED: oxyCODONE HCL 5 MG TABLET PO PRN ×2 (11:12)
[2021-02-21] MEDS ORDERED: LACTATED RINGERS SOLUTION 1,000 ML IV SCH (11:15)
[2021-02-21] MEDS ORDERED: SUCCINYLCHOLINE CHLORIDE 200 MG/10 ML SYRINGE ONE (11:54)
[2021-02-21] MEDS ORDERED: LIDOCAINE 1%/EPI 1:100000 (20 ML MULTI DOSE VIAL) IJ ONE (12:34)
[2021-02-21] MEDS ORDERED: BUPIVACAINE HCL/PF 0.5% (5MG/ML) 10 ML VIAL IJ ONE (12:35)
[2021-02-21 15:54] VITALS: BP 119/73; PULSE 86; TEMP 97.7
== END 2021-02-21 15:40 | disposition home or self-care (01) ==
LOC: JASU-SURG 04:05
PROVIDERS: ATTEND Orthopaedic Surgery
PROC: 0SBC4ZZ Excision of Right Knee Joint, Percutaneous Endoscopic Approach (ICD-10-PCS; principal; 2021-02-21 12:00)
DX: S83.231A Complex tear of medial meniscus, current injury, right knee, initial encounter (principal); X58.XXXA Exposure to other specified factors, initial encounter; Y93.9 Activity, unspecified; Y92.9 Unspecified place or not applicable; Y99.9 Unspecified external cause status; I10 Essential (primary) hypertension; E11.9 Type 2 diabetes mellitus without complications
CPT/HCPCS: 81025; 94760

== ENCOUNTER 2021-08-04 07:55 | Emergency (ER) | payer OTHER ==
[2021-08-04 08:08] VITALS: BP 125/81; PULSE 91; TEMP 97.5; BMI 34.0
== END 2021-08-04 09:19 | disposition home or self-care (01) ==
LOC: JER 07:55
DX: H10.13 Acute atopic conjunctivitis, bilateral (principal)
CPT/HCPCS: 99283-25

== ENCOUNTER 2021-11-16 10:27 | Emergency (ER) | payer OTHER ==
[2021-11-16 10:57] VITALS: BP 122/79; PULSE 106; TEMP 97.8; BMI 33.6
== END 2021-11-16 12:17 | disposition left against medical advice (07) ==
LOC: JER 10:27
DX: J45.909 Unspecified asthma, uncomplicated (principal)
CPT/HCPCS: 99281-25

== ENCOUNTER 2021-11-22 10:13 | Emergency (ER) | payer OTHER ==
[2021-11-22 10:32] VITALS: BP 127/83; PULSE 100; TEMP 97.9; BMI 33.6
== END 2021-11-22 12:26 | disposition home or self-care (01) ==
LOC: JER 10:13
DX: J20.9 Acute bronchitis, unspecified (principal)
CPT/HCPCS: 71046-TC-FY; 99283-25

== ENCOUNTER 2023-06-24 10:13 | Emergency (ER) | payer OTHER ==
[2023-06-24 10:17] VITALS: BP 144/88; PULSE 106; RESP 20; TEMP 98.1; BMI 34.5
[2023-06-24] MEDS ORDERED: LACTATED RINGERS SOLUTION 1000 ML INFUS.BAG IV ONE (11:56)
[2023-06-24] MEDS ORDERED: LOPERAMIDE HCL 2 MG CAPSULE PO ONE (11:59)
[2023-06-24] MEDS ORDERED: LOPERAMIDE HCL 2 MG CAPSULE ONE (12:05)
[2023-06-24 12:43] LABS: HEMATOCRIT 42.4 % (32.4-45.2); HEMOGLOBIN 14.1 GM/dL (10.7-15.3); LYMPH % 41.5 % (8-40); MCH 27.9 pg (25.7-33.7); MCHC 33.2 g/dl (32.0-36.0); MEAN CELL VOLUME 84.1 fl (80-96); MEAN PLT VOLUME 8.1 fl (7.5-11.1); MONO % 5.2 % (3.8-10.2); NEUT % 50.3 % (42.8-82.8); PLATELET COUNT 405 10^3/uL (134-434); RBC 5.05 M/mm3 (3.60-5.2); WHITE BLOOD COUNT 7.7 K/mm3 (4.0-10.0)
[2023-06-24 13:45] LABS: POTASSIUM 4.5 mmol/L (3.5-5.1)
[2023-06-24 13:48] LABS: ALBUMIN 4.2 g/dl (3.4-5.0); CALCIUM 9.3 mg/dL (8.5-10.1)
[2023-06-24 13:49] LABS: BLOOD UREA NITROGEN 9.8 mg/dL (7-18)
[2023-06-24 13:51] LABS: CREATININE 0.7 mg/dL (0.55-1.3)
[2023-06-24 13:53] LABS: BILIRUBIN,TOTAL 0.3 mg/dL (0.2-1); TOT PROT 7.8 g/dl (6.4-8.2)
== END 2023-06-24 18:01 | disposition home or self-care (01) ==
LOC: JER 10:13
DX: R19.7 Diarrhea, unspecified (principal); R10.84 Generalized abdominal pain; R10.32 Left lower quadrant pain; R11.0 Nausea; R00.0 Tachycardia, unspecified; Z20.822 Contact with and (suspected) exposure to COVID-19
CPT/HCPCS: 0241U-QW; 36415; 74177-TC; 80053; 83690; 85025; 99285-25; Q9967

== ENCOUNTER 2024-02-22 06:52 | Emergency (ER) | payer OTHER ==
[2024-02-22 07:00] VITALS: TEMP 97.6; BMI 35.9
[2024-02-22] MEDS ORDERED: ACETAMINOPHEN INJECTION 100 ML IVPB ONE (07:50)
[2024-02-22] MEDS ORDERED: IBUPROFEN 600 MG TABLET (FP) PO ONE (07:50)
[2024-02-22] MEDS ORDERED: FAMOTIDINE 20 MG/50 ML IVPB 20 MG/50 ML MG IVPB ONE (07:50)
[2024-02-22] MEDS: IBUPROFEN 600 MG TABLET (FP) PO ONE (07:58)
[2024-02-22 08:01] LABS: BASO % 0.7 % (0-2.0); EOS % 3.8 % (0-4.5); HEMATOCRIT 40.3 % (32.4-45.2); HEMOGLOBIN 13.8 GM/dL (10.7-15.3); LYMPH % 44.1 % (8-40); MCH 28.6 pg (25.7-33.7); MCHC 34.2 g/dl (32.0-36.0); MEAN CELL VOLUME 83.4 fl (80-96); MONO % 5.8 % (3.8-10.2); NEUT % 45.6 % (42.8-82.8); PLATELET COUNT 326 10^3/uL (134-434); RBC 4.84 M/mm3 (3.60-5.2); RDW 14.6 % (11.6-15.6); WHITE BLOOD COUNT 7.7 K/mm3 (4.0-10.0)
[2024-02-22] MEDS: FAMOTIDINE 20 MG/50 ML IVPB 20 MG/50 ML MG IVPB ONE (08:09)
[2024-02-22] MEDS: ACETAMINOPHEN 1000 MG/100 ML BAG IVPB ONE (08:09)
[2024-02-22 08:13] LABS: ACTIVATED PTT 30.2 SECONDS (25.2-36.5); INR 0.99 (0.83-1.09); PROTHROMBIN TIME (PATIENT) 11.2 SEC (9.7-13.0)
[2024-02-22 08:20] LABS: POTASSIUM 4.3 mmol/L (3.5-5.1)
[2024-02-22 08:22] LABS: CALCIUM 9.4 mg/dL (8.5-10.1)
[2024-02-22 08:23] LABS: ALBUMIN 3.8 g/dl (3.4-5.0); BLOOD UREA NITROGEN 16.9 mg/dL (7-18); MAGNESIUM 1.9 mg/dL (1.8-2.4)
[2024-02-22 08:26] LABS: CREATININE 0.8 mg/dL (0.55-1.3)
[2024-02-22 08:28] LABS: BILIRUBIN,TOTAL 0.4 mg/dL (0.2-1)
[2024-02-22 09:49] VITALS: BP 117/78; PULSE 73; RESP 16
[2024-02-22] MEDS ORDERED: LIDOCAINE 4% PATCH TP ONE (10:00)
[2024-02-22] MEDS: LIDOCAINE 4% PATCH TP ONE (10:04)
[2024-02-22] MEDS: METHOCARBAMOL 750 MG TAB PO ONE (10:26)
[2024-02-22 11:29] LABS: HIV INTERPRETATION NEGATIVE (NEGATIVE)
[2024-02-22] MEDS ORDERED: LIDOCAINE PATCH REMOVAL MC SCH (22:00)
== END 2024-02-22 10:35 | disposition home or self-care (01) ==
LOC: JER 06:52
PROC: 3E033GC Introduction of Other Therapeutic Substance into Peripheral Vein, Percutaneous Approach (ICD-10-PCS; principal; 2024-02-22)
PROC: 3E033NZ Introduction of Analgesics, Hypnotics, Sedatives into Peripheral Vein, Percutaneous Approach (ICD-10-PCS; 2024-02-22)
DX: R07.9 Chest pain, unspecified (principal)
CPT/HCPCS: 36415; 71045-TC-FY; 80053; 83735; 84484; 85025; 85610; 85730; 87389; 93005; 93010; 99285-25; J0131